=== PATIENT | female | born 1960 | race Caucasian/White ===

== ENCOUNTER 2020-11-22 07:17 | Outpatient (REF) | payer OTHER, SELFPAY ==
[2020-11-22 11:39] LABS: MANUAL DIFF FLAG NO
[2020-11-22 12:03] LABS: Basophils Percent Auto 0.5 % (0-2); Eosinophils Absolute Auto 0.1 X10*3/uL (0.0-0.4); Eosinophils Percent Auto 1.6 % (0-4); Hematocrit 40.4 % (37-47); Hemoglobin 13.1 g/dl (12.0-16.0); Imm Gran Abs Auto 0.01 X10*3/uL (0.00-0.03); Imm Gran Pct Auto 0.2 % (0.0-0.4); Lymphocytes Absolute Auto 1.8 X10*3/uL (1.2-4.9); Lymphocytes Percent Auto 41.3 % (20-40); Mean Corpuscular HGB Conc 32.4 g/dl (31.0-35.0); Mean Corpuscular Hemoglobin 29.6 pg (27.0-33.0); Mean Corpuscular Volume 91.4 fL (80-98); Mean Platelet Volume 9.8 fL (9.4-12.3); Monocytes Absolute Auto 0.3 X10*3/uL (0.1-1.2); Monocytes Percent Auto 7.4 % (2-11); Neutrophils Absolute Auto 2.1 X10*3/uL (2.0-8.3); Platelet Count 280 X10*3/uL (160-400); Red Blood Count 4.42 X10*6/uL (4.20-5.50); Red Cell Distribution Width 12.6 % (11.0-16.0); White Blood Count 4.3 X10*3/uL (4.8-10.8)
[2020-11-22 12:15] LABS: Vitamin D 25-OH Total 23.5 ng/mL (>30)
[2020-11-22 12:30] LABS: Alanine Aminotransferase 18 U/L (0-31); Anion Gap 14 (12-20); Aspartate Amino Transferase 18 U/L (5-31); Blood Urea Nitrogen 21 mg/dL (9-16); Calcium 9.7 mg/dL (8.4-10.2); Carbon Dioxide 28 mmol/L (22-29); Chloride 105 mmol/L (96-108); Cholesterol 205 mg/dL; Estimated Glomerular Filt Rate 59; Glucose Fasting 105 mg/dL (60-99); HDL Cholesterol 57 mg/dL; LDL Cholesterol Calculated 134 mg/dl; Potassium 4.5 mmol/L (3.3-5.1); Sodium 142 mmol/L (135-145); Triglycerides 74 mg/dL
== END 2020-11-22 07:18 | disposition home or self-care (01) ==
LOC: HO.HMGCLDS 07:17
PROVIDERS: PCP Internal Medicine; Visit Provider Internal Medicine
DX: Z00.00 Encounter for general adult medical examination without abnormal findings (principal); E89.41 Symptomatic postprocedural ovarian failure; K58.2 Mixed irritable bowel syndrome; I10 Essential (primary) hypertension
CPT/HCPCS: 36415; 80048; 80061; 82306; 84443; 84450; 84460; 85025

== ENCOUNTER 2022-12-04 09:03 | Outpatient (REF) | payer OTHER, SELFPAY ==
[2022-12-10 09:23] LABS: HPV mRNA E6/E7 rflx Not Detected (Not Detected)
== END 2022-12-04 09:04 | disposition home or self-care (01) ==
LOC: HO.LAB 09:03
PROVIDERS: Visit Provider Internal Medicine
DX: Z01.419 Encounter for gynecological examination (general) (routine) without abnormal findings (principal); Z11.51 Encounter for screening for human papillomavirus (HPV)
CPT/HCPCS: 87624; 88142

== ENCOUNTER 2022-12-04 09:08 | Outpatient (REF) | payer OTHER, SELFPAY ==
[2022-12-04 11:49] LABS: MANUAL DIFF FLAG NO
[2022-12-04 12:02] LABS: Basophils Percent Auto 0.4 % (0-2); Eosinophils Percent Auto 0.7 % (0-4); Hematocrit 39.1 % (37.0-47.0); Hemoglobin 12.7 g/dl (12.0-16.0); Imm Gran Abs Auto 0.01 X10*3/uL (0.00-0.03); Imm Gran Pct Auto 0.2 % (0.0-0.4); Lymphocytes Absolute Auto 1.8 X10*3/uL (1.2-4.9); Lymphocytes Percent Auto 33.6 % (20-40); Mean Corpuscular HGB Conc 32.5 g/dl (31.0-35.0); Mean Corpuscular Volume 89.3 fL (80.0-98.0); Mean Platelet Volume 9.3 fL (9.4-12.3); Monocytes Absolute Auto 0.3 X10*3/uL (0.1-1.2); Monocytes Percent Auto 6.3 % (2-11); Neutrophils Absolute Auto 3.2 x10*3/uL (2.0-8.3); Neutrophils Percent Auto 58.8 % (45-73); Platelet Count 278 X10*3/uL (160-400); Red Blood Count 4.38 X10*6/uL (4.20-5.50); Red Cell Distribution Width 13.2 % (11.0-16.0); White Blood Count 5.4 X10*3/uL (4.8-10.8)
[2022-12-04 12:22] LABS: Anion Gap 11 (12-20); Blood Urea Nitrogen 18 mg/dL (9-16); Calcium 9.6 mg/dL (8.4-10.2); Carbon Dioxide 29 mmol/L (22-29); Chloride 105 mmol/L (96-108); Cholesterol 238 mg/dL; Estimated Glomerular Filt Rate 60; Glucose Fasting 108 mg/dL (60-99); HDL Cholesterol 59 mg/dL; LDL Cholesterol Calculated 163 mg/dl; Potassium 4.2 mmol/L (3.3-5.1); Sodium 141 mmol/L (135-145); Triglycerides 82 mg/dL
[2022-12-04 12:40] LABS: Vitamin D 25-OH Total 42.1 ng/mL (>30)
== END 2022-12-04 09:09 | disposition home or self-care (01) ==
LOC: HO.HMGCLDS 09:08
PROVIDERS: PCP Internal Medicine; Visit Provider Internal Medicine
DX: Z00.01 Encounter for general adult medical examination with abnormal findings (principal); E89.41 Symptomatic postprocedural ovarian failure; K58.2 Mixed irritable bowel syndrome; R73.01 Impaired fasting glucose; Z78.0 Asymptomatic menopausal state; Z91.09 Other allergy status, other than to drugs and biological substances
CPT/HCPCS: 36415; 80048; 80061; 82306; 85025

== ENCOUNTER 2023-12-15 08:41 | Outpatient (AMB) | payer OTHER, SELFPAY ==
--- NOTE | 2023-12-15 08:48 | A.OFFPC_ITS ---
Vital Signs 12/15/23 08:51 Height 5 ft 6.5 in Weight 214 lb BMI 34.0 BP 124/70 Blood Pressure Location Lt brachial Position Sitting Pulse 73 Pulse Source Pulse Oximeter Pulse Oximetry (%) 96 Oxygen Delivery Method Room Air Intake Visit Reasons: PE Intake Note: Pt is here today for her PE: Last mammogram 02/22/23, papsmear 12/08/22: colonoscopy 2015 Dr. River Allergies omeprazole [From Prilosec] Allergy (Mild, Verified 12/15/23 08:50) Swelling codeine Adverse Reaction (Verified 12/15/23 09:09) unknown Medication List - Last Reconciled 12/15/23 by Taryn Manning MD No Known Home Meds Tobacco use date assessed: 12/15/23 Dental Screening Dental Screen Date: 12/15/23 Did you have a dental visit in the last 12 months?: Yes Did you have a dental problem in the last 6 months where you did not have access to dental care?: No Was dental information given to patient?: Patient has dentist [facility] Medical History (Updated 12/15/23 @ 09:19 by Taryn Manning MD) Hyperlipidemia Family history of thyroid disorder Menopause Impaired fasting glucose Hot flashes due to surgical menopause Uterine fibroid Environmental allergies Irritable bowel syndrome with mixed bowel habits Surgical History Hx of wisdom tooth extraction Hx of colonoscopy History of partial hysterectomy Family History Father Hypertension Skin cancer Alzheimer's dementia, late onset Mother Diabetes mellitus Thyroid disorder Sister Skin cancer Maternal Aunt Breast cancer, Onset Age: 61 Social History Housing: House Alcohol intake: current Alcohol intake frequency: holidays/special occasions only Patient Tobacco Use Status: Never used Tobacco e-Cigarette/Vaping Use: Never Used service: No Current occupational status: retired Cognitive needs: No Hearing needs: No Vision needs: Yes Questionnaire PHQ-9 Over the last 2 weeks, how often have you been bothered by any of the following problems? 1. Little interest or pleasure in doing things: not at all 2. Feeling down, depressed, or hopeless: not at all 3. Trouble falling or staying asleep, or sleeping too much: not at all 4. Feeling tired or having little energy: not at all 5. Poor appetite or overeating: not at all 6. Feeling bad about yourself - or that you are a failure or have let yourself or your family down: not at all 7. Trouble concentrating on things, such as reading the newspaper or watching television: not at all 8. Moving or speaking so slowly that other people could have noticed. Or the opposite - being so fidgety or restless that you have been moving around a lot more than usual: not at all 9. Thoughts that you would be better off or of hurting yourself in some way: not at all Total score: 0 Depression Screening Interpretation: Negative Depression Screening Done: Yes 38184 - PHQ-9 Billing: Yes Source: Developed by Drs. Eben Marte, Michelle Wright, Cale Solorzano and colleagues, with an educational abimbola from [employer]. Thrive Questionnaire Date Thrive assessed: 12/15/23 I am a: Patient What is your living situation today?: I have a steady place to live Within the past 12 months, did the food you bought not last and you didn't have the money to get more?: Never true Within the past 12 months, did you worry whether your food would run out before you got money to buy more?: Never true Do you have trouble paying for medicines?: No Do you have trouble getting transportation to medical appointments?: No Do you have trouble paying your heating and electricity bill?: No Do you have trouble taking care of your child, family member or friend?: No Do you have trouble with day-to-day activities such as bathing, preparing meals, shopping, managing finances, etc.?: No Are you currently unemployed and looking for a job?: No Are you interested in more education?: No THRIVE Score: 0 AUDIT C Alcohol Use Questionnaire (AUDIT-C) 1. How often do you have a drink containing alcohol?: Monthly or less 2. How many drinks containing alcohol do you have on a typical day when you are drinking?: 1 or 2 3. How often do you have six or more drinks on one occasion?: Never Total Score: 1 INOCENTE-7 AMB Questionnaire INOCENTE-7 Date INOCENTE - 7 assessed: 12/15/23 Feeling nervous, anxious, or on edge: 0 = Not at all Not being able to stop or control worryin = Not at all Worrying too much about different things: 0 = Not at all Trouble relaxin = Not at all Being so restless that it is hard to sit still: 0 = Not at all Becoming easily annoyed or irritable: 0 = Not at all Feeling afraid as if something awful might happen: 0 = Not at all Total INOCENTE-7 score (0-4 normal; 5-9 mild; 10-14 moderate; 15-21 severe): 0 Source: Developed by Drs. Eben Marte, Michelle Wright, Cale Solorzano and colleagues, with an educational abimbola from [employer]. Review of Systems Eyes Details: DR Mckeon Physical exam (Primary Care) Vital Signs: Last Vital Signs Pulse 73 12/15/23 08:51 BP 124/70 12/15/23 08:51 Pulse Ox 96 12/15/23 08:51 Oxygen Delivery Method Room Air 12/15/23 08:51 BMI result Body Mass Index 34.0 Tobacco/Smoking Status: Tobacco use Status Tobacco use date assessed 12/15/23 12/15/23 08:55 Patient Tobacco Use Status Never used Tobacco 12/15/23 08:55 e-Cigarette/Vaping Use Never Used 12/15/23 08:55 PHQ-9: PHQ-9 Score PHQ-9: Total score 0 12/15/23 08:55 Depression Screening Interpretation: Negative Thrive Assessment: Date of Thrive Assessment Date Thrive assessed 12/15/23 12/15/23 08:55 Assessment and Plan Assessment & Plan (1) Impaired fasting glucose: Code(s): R73.01 - Impaired fasting glucose (2) Family history of thyroid disorder: Code(s): Z83.49 - Family history of other endocrine, nutritional and metabolic diseases (3) Hyperlipidemia: Code(s): E78.5 - Hyperlipidemia, unspecified Orders: Orders Basic Metabolic Panel Fasting Today E78.5 - Hyperlipidemia, unspecified, R73.01 - Impaired fasting glucose, Z78.0 - Asymptomatic menopausal state, Z83.49 - Family history of other endocrine, nutritional and metabolic diseases Hemoglobin A1c Today E78.5 - Hyperlipidemia, unspecified, R73.01 - Impaired fasting glucose, Z78.0 - Asymptomatic menopausal state, Z83.49 - Family history of other endocrine, nutritional and metabolic diseases Lipid Panel Today E78.5 - Hyperlipidemia, unspecified, R73.01 - Impaired fasting glucose, Z78.0 - Asymptomatic menopausal state, Z83.49 - Family history of other endocrine, nutritional and metabolic diseases Alanine Aminotransferase Today E78.5 - Hyperlipidemia, unspecified, R73.01 - Impaired fasting glucose, Z78.0 - Asymptomatic menopausal state, Z83.49 - Family history of other endocrine, nutritional and metabolic diseases Aspartate Amino Transferase Today E78.5 - Hyperlipidemia, unspecified, R73.01 - Impaired fasting glucose, Z78.0 - Asymptomatic menopausal state, Z83.49 - Family history of other endocrine, nutritional and metabolic diseases TSH reflex Free T4 Today E78.5 - Hyperlipidemia, unspecified, R73.01 - Impaired fasting glucose, Z78.0 - Asymptomatic menopausal state, Z83.49 - Family history of other endocrine, nutritional and metabolic diseases Coding Level of Care Code Est Pt Prev Care 40-64y(41936) Diagnoses Impaired fasting glucose R73.01 Family history of thyroid disorder Z83.49 Hyperlipidemia E78.5
--- NOTE | 2023-12-15 08:48 | MHC.PC.OV ---
Vital Signs 12/15/23 08:51 Height 5 ft 6.5 in Weight 214 lb BMI 34.0 BP 124/70 Blood Pressure Location Lt brachial Position Sitting Pulse 73 Pulse Source Pulse Oximeter Pulse Oximetry (%) 96 Oxygen Delivery Method Room Air Intake Visit Reasons: PE Intake Note: Pt is here today for her PE: Last mammogram 02/22/23, papsmear 12/08/22: colonoscopy 2015 Dr. River Allergies omeprazole [From Prilosec] Allergy (Mild, Verified 10/04/24 18:03) Swelling codeine Adverse Reaction (Verified 10/04/24 18:03) unknown Medication List - Last Reconciled 12/15/23 by Taryn Manning MD No Known Home Meds Tobacco use date assessed: 12/15/23 Dental Screening Dental Screen Date: 12/15/23 Did you have a dental visit in the last 12 months?: Yes Did you have a dental problem in the last 6 months where you did not have access to dental care?: No Was dental information given to patient?: Patient has dentist HPI PE HPI Details 64-year-old lady with history of hyperlipidemia, IBS, impaired fasting glucose, migraine headaches, takes Tylenol or sumatriptan as needed, here today for physical exam. She has been feeling well with no complaints at present time [facility] History Hyperlipidemia Family history of thyroid disorder Menopause Impaired fasting glucose Hot flashes due to surgical menopause Uterine fibroid Environmental allergies Irritable bowel syndrome with mixed bowel habits Surgical History Hx of wisdom tooth extraction Hx of colonoscopy History of partial hysterectomy Family History Father Hypertension Skin cancer Alzheimer's dementia, late onset Mother Diabetes mellitus Thyroid disorder Sister Skin cancer Maternal Aunt Breast cancer, Onset Age: 61 Social History Housing: House Alcohol intake: current Alcohol intake frequency: holidays/special occasions only Patient Tobacco Use Status: Never used Tobacco e-Cigarette/Vaping Use: Never Used service: No Current occupational status: retired Cognitive needs: No Hearing needs: No Vision needs: Yes Female Reproductive History Menstrual Date of last pap smear: 12/04/22 Questionnaire PHQ-9 Over the last 2 weeks, how often have you been bothered by any of the following problems? 1. Little interest or pleasure in doing things: not at all 2. Feeling down, depressed, or hopeless: not at all 3. Trouble falling or staying asleep, or sleeping too much: not at all 4. Feeling tired or having little energy: not at all 5. Poor appetite or overeating: not at all 6. Feeling bad about yourself - or that you are a failure or have let yourself or your family down: not at all 7. Trouble concentrating on things, such as reading the newspaper or watching television: not at all 8. Moving or speaking so slowly that other people could have noticed. Or the opposite - being so fidgety or restless that you have been moving around a lot more than usual: not at all 9. Thoughts that you would be better off or of hurting yourself in some way: not at all Total score: 0 Depression Screening Interpretation: Negative Depression Screening Done: Yes 84875 - PHQ-9 Billing: Yes Source: Developed by Drs. Eben Marte, Michelle Wright, Cale Solorzano and colleagues, with an educational abimbola from [employer]. Thrive Questionnaire Date Thrive assessed: 12/15/23 I am a: Patient What is your living situation today?: I have a steady place to live Within the past 12 months, did the food you bought not last and you didn't have the money to get more?: Never true Within the past 12 months, did you worry whether your food would run out before you got money to buy more?: Never true Do you have trouble paying for medicines?: No Do you have trouble getting transportation to medical appointments?: No Do you have trouble paying your heating and electricity bill?: No Do you have trouble taking care of your child, family member or friend?: No Do you have trouble with day-to-day activities such as bathing, preparing meals, shopping, managing finances, etc.?: No Are you currently unemployed and looking for a job?: No Are you interested in more education?: No Please select the resources that you would like help with: None THRIVE Score: 0 AUDIT C Alcohol Use Questionnaire (AUDIT-C) 1. How often do you have a drink containing alcohol?: Monthly or less 2. How many drinks containing alcohol do you have on a typical day when you are drinking?: 1 or 2 3. How often do you have six or more drinks on one occasion?: Never Total Score: 1 INOCENTE-7 AMB Questionnaire INOCENTE-7 Date INOCENTE - 7 assessed: 12/15/23 Feeling nervous, anxious, or on edge: 0 = Not at all Not being able to stop or control worryin = Not at all Worrying too much about different things: 0 = Not at all Trouble relaxin = Not at all Being so restless that it is hard to sit still: 0 = Not at all Becoming easily annoyed or irritable: 0 = Not at all Feeling afraid as if something awful might happen: 0 = Not at all Total INOCENTE-7 score (0-4 normal; 5-9 mild; 10-14 moderate; 15-21 severe): 0 Source: Developed by Drs. Eben Marte, Michelle Wright, Cale Solorzano and colleagues, with an educational abimbola from [employer]. INOCENTE-7 Assessment Billing INOCENTE-7 Assessment Tool: INOCENTE-7 Assessment 78802 Review of Systems Const Denies body aches, Denies fatigue, Denies headache(s) and Denies weakness Eyes Details: DR Mckeon Denies change in vision ENT Details: sees Dr Vandana Gutierrez at [facility] Denies dizziness, Denies headache(s), Reports nasal congestion, Reports post nasal drip and Denies sinus pressure Card Denies chest pain, Denies lightheadedness, Denies palpitations and Denies dyspnea Resp Denies chest congestion, Denies cough, Denies dyspnea and Denies wheezing GI Denies abdominal pain, Denies change in bowel habits and Denies heartburn Denies urinary frequency, Denies dysuria, Denies prolapse symptoms, Denies urinary incontinence and Denies urinary urgency Musc Reports no additional complaints Skin/Breast Denies lesions and Denies rash Neuro Denies dizziness, Denies headache(s) and Denies weakness Psych Reports no additional complaints Endo Denies fatigue, Denies polydipsia, Denies polyuria and Denies palpitations Rubén/Lymph Denies easy bruising Aller/Immun Reports seasonal rhinorrhea and Denies wheezing Physical exam (Primary Care) Vital Signs: Last Vital Signs Pulse 73 12/15/23 08:51 BP 124/70 12/15/23 08:51 Pulse Ox 96 12/15/23 08:51 Oxygen Delivery Method Room Air 12/15/23 08:51 BMI result Body Mass Index 34.0 BMI Assessment/Plan discussion: High BMI High, discussed plan: weight reduction, dietary and physical activity Tobacco/Smoking Status: Tobacco use Status Tobacco use date assessed 12/15/23 12/15/23 08:55 Patient Tobacco Use Status Never used Tobacco 12/15/23 08:55 e-Cigarette/Vaping Use Never Used 12/15/23 08:55 PHQ-9: PHQ-9 Score PHQ-9: Total score 0 10/04/24 18:03 Depression Screening Interpretation: Negative Thrive Assessment: Date of Thrive Assessment Date Thrive assessed 12/15/23 12/15/23 08:55 Advance Care Planning discussion: Completed/Scanned Date of discussion: 12/15/23 Who was present: Patient Forms completed: Health Care Proxy Time spent: 16-45 minutes Actual minutes spent: 4 Const Other: Alert oriented x3, no acute distress noted ambulatory with normal gait Orientation/consciousness: patient oriented x3 HENMT Ears: TM's normal bilaterally and EAC's normal General nose exam: Normal external nose present Face and sinus: Yes face symmetric Mouth: oropharynx normal and moist mucous membranes Eyes General: appearance normal, both eyes and all related structures Conjunctivae: conjunctivae normal Pupils: Equal, round and reactive pupils present EOM: EOMs intact bilaterally Neck Neck: Yes normal visual inspection, Yes full ROM and Yes supple Chest Chest palpation & inspection: normal inspection of the chest Breast/axilla palpation: normal palpation of the breasts and normal palpation of the axillae Resp Effort & Inspection: normal respiratory effort and able to speak in complete sentences Auscultation: clear to auscultation bilaterally Cardio Other: S1 and S2 present regular rate and rhythm, no murmur GI Palpation (GI): Soft to palpation, nontender, no guarding and no masses Auscultation: normal bowel sounds General: Yes no CVA tenderness Back/Spine/Pelvis Back: no CVA tenderness and No back tenderness Skin General skin exam: no rashes or lesions noted Neuro General: patient oriented x3, gait normal, tone normal, moves all extremities, Normal light touch and pain sensation, no focal motor deficits and CN's II-XI intact bilaterally Cranial nerves: Yes Equal, round and reactive pupils present Extrem General: Yes full ROM, Yes no joint enlargement, Yes no clubbing, cyanosis or edema, Yes no pedal edema, Yes no calf tenderness and Yes normal gait Psych Appearance: grossly normal and well kempt Mental Status: mental status grossly normal Speech and movement: Normal speech and movement present Affect: normal affect Coding Level of Care Code Est Pt Prev Care 40-64y(86802) Diagnoses Annual visit for general adult medical examination with abnormal findings Z00.01 Impaired fasting glucose R73.01 Family history of thyroid disorder Z83.49 Hyperlipidemia E78.5 Chronic migraine without aura G43.709 Environmental allergies Z91.09 Advanced directives, counseling/discussion Z71.89 Additional Codes INOCENTE-7 Assessment Billing - INOCENTE-7 Assessment Tool: INOCENTE-7 Assessment 54680 ([id number]) Vital Signs *Quality* - Advance Care Planning discussion: Completed/Scanned ([id number]) Vital Signs *Quality* - Time spent: 16-45 minutes ([id number])
[2023-12-15 08:51] VITALS: BP 124/70; PULSE 73; O2SAT 96; BMI 34.0
== END 2023-12-15 11:29 | disposition home or self-care (01) ==
PROVIDERS: PCP Internal Medicine; Visit Provider Internal Medicine
DX: Z00.01 Encounter for general adult medical examination with abnormal findings (principal); R73.01 Impaired fasting glucose; Z83.49 Family history of other endocrine, nutritional and metabolic diseases; E78.5 Hyperlipidemia, unspecified; G43.709 Chronic migraine without aura, not intractable, without status migrainosus; Z91.09 Other allergy status, other than to drugs and biological substances; Z71.89 Other specified counseling; Z00.00 Encounter for general adult medical examination without abnormal findings
CPT/HCPCS: 99499

== ENCOUNTER 2023-12-15 09:39 | Outpatient (REF) | payer OTHER, SELFPAY ==
[2023-12-15 11:14] LABS: Estimated Average Glucose 126 mg/dL
[2023-12-15 11:41] LABS: Alanine Aminotransferase 29 U/L (0-31); Anion Gap 12 (12-20); Aspartate Amino Transferase 18 U/L (5-31); Blood Urea Nitrogen 21 mg/dL (9-16); Carbon Dioxide 27 mmol/L (22-29); Chloride 106 mmol/L (96-108); Cholesterol 239 mg/dL (<200); Estimated Glomerular Filt Rate 58; Glucose Fasting 100 mg/dL (60-99); HDL Cholesterol 61 mg/dL (>40); LDL Cholesterol Calculated 159 mg/dL (<100); Potassium 3.7 mmol/L (3.3-5.1); Sodium 141 mmol/L (135-145); Triglycerides 96 mg/dL (<150)
[2023-12-15 11:57] LABS: TSH reflex Free T4 1.96 uIU/mL (0.32-4.0)
== END 2023-12-15 09:40 | disposition home or self-care (01) ==
LOC: HO.HMGCLDS 09:39
PROVIDERS: PCP Internal Medicine; Visit Provider Internal Medicine
DX: R73.01 Impaired fasting glucose (principal); E78.5 Hyperlipidemia, unspecified; Z83.49 Family history of other endocrine, nutritional and metabolic diseases; Z78.0 Asymptomatic menopausal state
CPT/HCPCS: 36415; 80048; 80061; 83036; 84443; 84450; 84460

== ENCOUNTER 2024-02-25 09:56 | Outpatient (AMB) | payer OTHER, SELFPAY ==
[2024-02-25 09:57] VITALS: BP 164/92; PULSE 76; O2SAT 97; BMI 35.2
--- NOTE | 2024-02-25 09:57 | MHC.OFFVIS ---
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 Allergies omeprazole [From Prilosec] Allergy (Mild, Verified 02/25/24 10:01) Swelling codeine Adverse Reaction (Verified 02/25/24 10:01) unknown Medication List - Last Reconciled 02/25/24 by GEORGE Martines magnesium oxide 400 mg PO BEDTIME 30 days riboflavin (vitamin B2) 400 mg PO DAILY 30 days sumatriptan succinate 50 - 100 mg orally at onset of headache, may repeat in 2 hrs PRN; max 2 tabs per day or 4 tabs/week (may take with Tylenol) 30 days HPI Comments Details: 64-yr-old female presents for new pt evaluation of possible migraine. Pt reports she has always had allergies, sinus, and postnasal drip issues. She started seeing an security expert a couple of years ago, who started her on allergy shots however this did not help her postnasal drip s/s. She was then referred to ENT, who did sinus CT- which was clear and thus pt was referred here. She had taken sudafed for at least 20 yrs, and started taking it almost daily x's 15 yrs. If her head was really hurting she would take Tylenol to boost the pain relief . But stopped earlier this year per advise of ENT and security expert. She states the congestion she was trying to treat was never in her nose, but more so in the frontal region. PMH and ROS are notable for:? Vision: Some blurry vision at times- thinks this is d/t her progressive glasses slipping down- sees her eye doctor regularly. Neuro: motion sickness if say in a car and tries to focus on something like reading or spinning rides, off-balance upon standing up quickly. Musculoskeletal disorders or injury: neck or mid-back pain- mostly when standing for awhile, possibly r/t her large breast size. History of syncope- Passed out during her 1st - was quite sick during that . And once became whoozy and had to sit down at [employer]- it was hot. never occurred again. GI d/o: h/o GERD- was r/t a certain medication use. IBS. Constipation: sometimes. Family history of migraine or other headache disorder: her dtr's. Pertinent denials include: History of concussion/head injury, Mood d/o, Respiratory d/o, CV disease, Clotting or hematology d/o, Endocrine d/o, metabolic d/o, History of seizure or drop attacks, Leg Cramps, Lifestyle considerations: Sleep routine: Usual bedtime: 11pm-1am and wake-up time: 5am Sleep difficulties: Usually sleeps ok, her may wake her up w/ his movements. Endorses: Snoring if on her back, possibly bruxism. Caffeine use: 2 cups per day in the am. Substance use: Alcohol- social when out to dinner Exercise:? Active at home. Walks on nice days. No structured exercise. 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 Headache questionnaire:? Typical headache characteristics: Prodrome symptoms: Unsure Aura: Unsure Pain intensity: moderate Location, quality, characteristics: Pressure/throbbing pain usually in bilateral temples and retrooribital regions. Occassional pain in top or back of head. Associated symptoms: at times, allodynia, nausea, rubbing her temples causes drainage from the psoterior orophraynx, prone to itchy/watery eyes, inner ears can be itching, Also: Right ear pain- right retro-auricular palpable pain that would radiate down right jaw. Postdrome: Unsure Triggers: If she lays down flat- this will cause nausea. Bending over and coming back up triggers obset of nausea, head pressure. Also stress, weather changes, altitude changes. Time of day: No specific time of day Duration and Frequency: Hours to all day. How does headache impact your life? Usually pushes through it. Current acute medication use/interventions: Nothing Current preventative medication use: None. Using Georgiana prior to her allergy injections- but this tends to cause a mid-frontal headache. Non-pharmacological interventions: [facility] Medical History (Updated 02/27/24 @ 20:19 by GEORGE Martines) Hyperlipidemia Family history of thyroid disorder Menopause Impaired fasting glucose Hot flashes due to surgical menopause Uterine fibroid Environmental allergies Irritable bowel syndrome with mixed bowel habits Surgical History Hx of wisdom tooth extraction Hx of colonoscopy History of partial hysterectomy Family History Father Hypertension Skin cancer Alzheimer's dementia, late onset Mother Diabetes mellitus Thyroid disorder Sister Skin cancer Maternal Aunt Breast cancer, Onset Age: 61 Social History Housing: House Alcohol intake: current Alcohol intake frequency: holidays/special occasions only Patient Tobacco Use Status: Never used Tobacco e-Cigarette/Vaping Use: Never Used service: No Current occupational status: retired Cognitive needs: No Hearing needs: No Vision needs: Yes Physical Exam Vital Signs: Last Vital Signs Pulse 76 02/25/24 09:57 BP 164/92 H 02/25/24 09:57 Pulse Ox 97 02/25/24 09:57 Oxygen Delivery Method Room Air 02/25/24 09:57 BMI result Body Mass Index 35.2 Const Orientation/consciousness: patient oriented x3 Resp Effort & Inspection: normal respiratory effort and able to speak in complete sentences Neuro Other: Bilateral posterior cervical tightness. Cervical ROM: mildly limited Left Spurling: normal Right Spurling: normal. Unable to prefom Tandem gait General: patient oriented x3 Cranial nerves: Yes CN's II-XII intact bilaterally Cognition (Neuro): normal cognition Gait exam (Neuro): Normal gait present Motor exam (neuro): 5/5 motor strength present throughout Deep tendon reflexes (DTR's): Right triceps reflex intensity grade: 2+, Left triceps reflex intensity grade: 2+, Rt Biceps (C5, C6): 2+, Left biceps reflex intensity grade: 2+, Right brachioradialis reflex intensity grade: 2+, Left brachioradialis reflex intensity grade: 2+, Right patellar reflex intensity grade: 2+ and Left patellar reflex intensity grade: 2+ Coordination: [id number] test normal and Romberg test negative Pupils: Normal pupillary reactivity/response: bilateral Psych Appearance: grossly normal Mental Status: mental status grossly normal Speech and movement: Normal speech and movement present Affect: normal affect Attitude: cooperative Thought process: Normal thought process present Assessment & Plan Assessment & Plan (1) Chronic migraine without aura: Code(s): G43.709 - Chronic migraine without aura, not intractable, without status migrainosus Category: Medical (2) Motion sickness: Code(s): T75.3XXA - Motion sickness, initial encounter Category: Medical (3) Positional headache: Code(s): R51.0 - Headache with orthostatic component, not elsewhere classified Category: Medical (4) Vertigo: Code(s): R42 - Dizziness and giddiness Category: Medical Plan Discussed that I suspect pt's sinus s/s are likely a headache disorder with features c/w chronic migraine w/o aura. However, pt also has headaches/pressure/nausea triggered by laying flat or bending over/standing back up. Thus, pt advised to undergo: Brain MRI w/wo to assess for intracranial etiologies, such as intracranial HTN. Note- her dtr has IIH. PT eval & tx- for headache and cervical neck tightness. For overall headache management: Optimize good self-care, including but not limited to maintaining a healthy diet, adequate fluid intake, adequate sleep, and engaging in regular physical activity. Track headaches, especially after any treatment regimen changes. For acute headache treatment: Discussed importance of taking acute medications at the first sign of headache, however stressed importance of avoiding acute medication overuse. Avoid Sudafed. Trial Sumatriptan 100mg tab, 1/2 - 1 tab (50-100mg) at onset of headache, may repeat in 2 hours. Max of 2 tabs (200mg) per 24 hours. May adjunct with OTC Tylenol 650mg q 4 hours, Ibuprofen 600mg q 6 hours, or Naproxen 440mg q 12 hrs prn. Potential adverse effects of triptans, including but not limited to nausea, fatigue, chest tightness/tingling (usually passes within a few minutes), medication overuse headaches. Previous acute migraine medication trials: no other prescription tx's. Acute migraine medication contraindications: None at this time For headache prevention medication: Preventative medications should be taken routinely as prescribed for best effect, it may take several weeks for full effect to take effect. Start Riboflavin 400mg qam Start Magnesium 400mg qhs Previous migraine prevention medication trials: None Migraine prevention medication contraindications: None at this time Follow-up upon review of above and in clinic in 3-6 months or sooner prn. Orders: Orders MR head/brain wo/w con 08/09/24 R11.0 - Nausea, R42 - Dizziness and giddiness, R51.0 - Headache with orthostatic component, not elsewhere classified PT Evaluation and Treatment 02/25/24 G43.709 - Chronic migraine without aura, not intractable, without status migrainosus, T75.3XXA - Motion sickness, initial encounter Medications: New sumatriptan succinate (0.5 - 1 x 100 mg) 50 - 100 mg orally at onset of headache, may repeat in 2 hrs PRN; max 2 tabs per day or 4 tabs/week (may take with Tylenol) 30 days 12 tabs 6RF migraine headache magnesium oxide may hold for loose stools 400 mg PO BEDTIME 30 days 30 tabs 6RF riboflavin (vitamin B2) 400 mg PO DAILY 30 days 30 tabs 6RF alprazolam 0.25 mg orally 1 tab 30 minutes prior to MRI, may repeat x's 1; 1 day 2 tabs 0RF Coding Level of Care Code New Pt Level 4 (19743) Diagnoses Chronic migraine without aura G43.709 Motion sickness T75.3XXA Positional headache R51.0 Vertigo R42
== END 2024-02-25 11:44 | disposition home or self-care (01) ==
PROVIDERS: PCP Internal Medicine; Visit Provider Nurse Practitioner Family
DX: G43.709 Chronic migraine without aura, not intractable, without status migrainosus (principal); T75.3XXA Motion sickness, initial encounter; R51.0 Headache with orthostatic component, not elsewhere classified; R42 Dizziness and giddiness
CPT/HCPCS: 99204

== ENCOUNTER → 2024-02-25 09:56 | Outpatient (BNVA) | payer OTHER, SELFPAY | PROVIDERS: PCP Internal Medicine; Visit Provider Nurse Practitioner Family | DX: G43.709 Chronic migraine without aura, not intractable, without status migrainosus (principal); R51.0 Headache with orthostatic component, not elsewhere classified; R42 Dizziness and giddiness; R11.0 Nausea; T75.3XXA Motion sickness, initial encounter; X58.XXXA Exposure to other specified factors, initial encounter; Y93.9 Activity, unspecified; Y92.9 Unspecified place or not applicable; Y99.9 Unspecified external cause status | CPT/HCPCS: 99202 ==

== ENCOUNTER 2024-03-02 12:04 | Outpatient (AMB) | payer OTHER, SELFPAY ==
--- NOTE | 2024-03-02 12:08 | AM.OFFWIN_ITS ---
Intake Vital Signs 03/02/24 12:13 Height 5 ft 6 in Weight 218 lb BMI 35.2 BP 130/82 Blood Pressure Location Rt brachial Position Sitting Pulse 78 Pulse Source Pulse Oximeter Pulse Oximetry (%) 97 Oxygen Delivery Method Room Air Intake Visit Reasons: EP LT ear block, diff hearing, ringing Intake Note: Patient here for left ear difficulty hearing that started yesterday. Patient Tobacco Use Status: Never used Tobacco Allergies omeprazole [From Prilosec] Allergy (Mild, Verified 03/02/24 12:13) Swelling codeine Adverse Reaction (Verified 03/02/24 12:13) unknown Do you need a note to return to daycare/school/sports/work: No HPI HPI Comments History of Present Illness Details 64 y/o female patient who presents to [facility] with c/o hearing changes left ear since yesterday. Pt c/o hearing muffled sounds in the left ear. C/o feeling pressure and pain left ear. Denies ringing or discharge. [facility] Medical History (Updated 02/27/24 @ 20:19 by GEORGE Martines) Hyperlipidemia Family history of thyroid disorder Menopause Impaired fasting glucose Hot flashes due to surgical menopause Uterine fibroid Environmental allergies Irritable bowel syndrome with mixed bowel habits Surgical History Hx of wisdom tooth extraction Hx of colonoscopy History of partial hysterectomy Family History Father Hypertension Skin cancer Alzheimer's dementia, late onset Mother Diabetes mellitus Thyroid disorder Sister Skin cancer Maternal Aunt Breast cancer, Onset Age: 61 Social History Housing: House Alcohol intake: current Alcohol intake frequency: holidays/special occasions only Patient Tobacco Use Status: Never used Tobacco e-Cigarette/Vaping Use: Never Used service: No Current occupational status: retired Cognitive needs: No Hearing needs: No Vision needs: Yes Review of Systems Const All systems reviewed & are unremarkable except as noted in HPI and below Physical Exam Vital Signs: Last Vital Signs Pulse 78 03/02/24 12:13 BP 130/82 03/02/24 12:13 Pulse Ox 97 03/02/24 12:13 Oxygen Delivery Method Room Air 03/02/24 12:13 BMI result Body Mass Index 35.2 Const General: cooperative and no acute distress Nutritional Appearance: obese Orientation/consciousness: patient oriented x3 HEENT Head: Yes normocephalic Ears: external ears normal and TM abnormal bulging bilateral, erythematous bilateral and with fluid behind the TM bilateral General nose exam: Normal external nose present Face and sinus: Yes normal facial exam Throat: Yes posterior oropharynx normal Resp Effort & Inspection: normal respiratory effort and able to speak in complete sentences Cardio Heart sounds: S1 normal heart sound present and S2 normal heart sound present Neuro General: patient oriented x3 Assessment & Plan Assessment & Plan (1) Pressure-related ear pain: Code(s): T70.0XXA - Otitic barotrauma, initial encounter Qualifiers: Encounter type: initial encounter Qualified Code(s): T70.0XXA - Otitic barotrauma, initial encounter Plan: OTC Zrytec, Claritin or Georgiana (BID x 7 days). Acetaminophen for pain relief. No signs of infection right now. TM intact. Coding Level of Care Code Est Pt Level 3 (06211) Diagnoses Otitic barotrauma, initial encounter T70.0XXA Encounter type: initial encounter Time Spent (min) 15
[2024-03-02 12:13] VITALS: BP 130/82; PULSE 78; O2SAT 97; BMI 35.2
== END 2024-03-02 12:49 | disposition home or self-care (01) ==
PROVIDERS: PCP Internal Medicine; Visit Provider Nurse Practitioner Family
DX: T70.0XXA Otitic barotrauma, initial encounter (principal)
CPT/HCPCS: 99213

== ENCOUNTER 2024-09-07 08:49 | Outpatient (AMB) | payer OTHER, SELFPAY ==
--- NOTE | 2024-09-07 08:53 | MHC.OFFVIS ---
Vital Signs 09/07/24 08:55 Height 5 ft 6 in Weight 216 lb BMI 34.9 BP 130/70 Blood Pressure Location Rt brachial Position Sitting Intake Visit Reasons: 6mo. 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 Patient denies any significant medical history changes. She did PT, which has helped her headaches. She does continue to do her PT exercises. She notes, before she never really consider these to be headaches, but rather just her sinus symptoms. She still wakes up daily with post nasal drip and sinus congestion. She is having 1-2 bothersome headaches, which responds to OTC Tylenol or Ibuprofen. She states she never received sumatriptan. She tried riboflavin and magnesium, atorvastatin, states 1 of them cause loose stools. She does continue on allergy immunotherapy, which has decreased her sensitivity to her daughters cat however has not affected the postnasal drip/sinus congestion symptoms. Brain MRI showed age-related volume loss and mild signs of microangiopathic changes. Patient denies cognitive difficulties. BP is normotensive. Does have HLD- 12/15/2023 elevated total cholesterol 239 and LDL, 159 with normal triglycerides 96 and HDL 61. Patient generally cooks from scratching at home, follows typical Mediterranean type diet. She did try a migraine diet elimination trial, however she did not notice any benefit from this and is difficult to maintain. She does try to be physically active Her father of AD, dx'd at age 70- but had s/s earlier in [facility], at about age 80. Her mother had dementia- pt feels it was likely secondary to worsening macular degeneration, and the subsequent social isolation this caused. 02/25/24, initial HPI: 64-yr-old female presents for new pt evaluation of possible migraine. Pt reports she has always had allergies, sinus, and postnasal drip issues. She started seeing an sales representative cash registers a couple of years ago, who started her on allergy shots however this did not help her postnasal drip s/s. She was then referred to ENT, who did sinus CT- which was clear and thus pt was referred here. She had taken sudafed for at least 20 yrs, and started taking it almost daily x's 15 yrs. If her head was really hurting she would take Tylenol to boost the pain relief . But stopped earlier this year per advise of ENT and sales representative cash registers. She states the congestion she was trying to treat was never in her nose, but more so in the frontal region. PMH and ROS are notable for:? Vision: Some blurry vision at times- thinks this is d/t her progressive glasses slipping down- sees her eye doctor regularly. Neuro: motion sickness if say in a car and tries to focus on something like reading or spinning rides, off-balance upon standing up quickly. Musculoskeletal disorders or injury: neck or mid-back pain- mostly when standing for awhile, possibly r/t her large breast size. History of syncope- Passed out during her 1st - was quite sick during that . And once became whoozy and had to sit down at [employer]- it was hot. never occurred again. GI d/o: h/o GERD- was r/t a certain medication use. IBS. Constipation: sometimes. Family history of migraine or other headache disorder: her dtr's. Pertinent denials include: History of concussion/head injury, Mood d/o, Respiratory d/o, CV disease, Clotting or hematology d/o, Endocrine d/o, metabolic d/o, History of seizure or drop attacks, Leg Cramps, Lifestyle considerations: Sleep routine: Usual bedtime: 11pm-1am and wake-up time: 5am Sleep difficulties: Usually sleeps ok, her may wake her up w/ his movements. Endorses: Snoring if on her back, possibly bruxism. Caffeine use: 2 cups per day in the am. Substance use: Alcohol- social when out to dinner Exercise:? Active at home. Walks on nice days. No structured exercise. 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 Headache questionnaire:? Typical headache characteristics: Prodrome symptoms: Unsure Aura: Unsure Pain intensity: moderate Location, quality, characteristics: Pressure/throbbing pain usually in bilateral temples and retrooribital regions. Occassional pain in top or back of head. Associated symptoms: at times, allodynia, nausea, rubbing her temples causes drainage from the psoterior orophraynx, prone to itchy/watery eyes, inner ears can be itching, Also: Right ear pain- right retro-auricular palpable pain that would radiate down right jaw. Postdrome: Unsure Triggers: If she lays down flat- this will cause nausea. Bending over and coming back up triggers obset of nausea, head pressure. Also stress, weather changes, altitude changes. Time of day: No specific time of day Duration and Frequency: Hours to all day. How does headache impact your life? Usually pushes through it. Current acute medication use/interventions: Nothing Current preventative medication use: None. Using Georgiana prior to her allergy injections- but this tends to cause a mid-frontal headache. 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 menopause Uterine fibroid Environmental allergies Irritable bowel syndrome with mixed bowel habits Surgical History Hx of wisdom tooth extraction Hx of colonoscopy History of partial hysterectomy Family History Father Hypertension Skin cancer Alzheimer's dementia, late onset Mother Diabetes mellitus Thyroid disorder Sister Skin cancer Maternal Aunt Breast cancer, Onset Age: 61 Social History Housing: House Alcohol intake: current Alcohol intake frequency: holidays/special occasions only Patient Tobacco Use Status: Never used Tobacco e-Cigarette/Vaping Use: Never Used service: No Current occupational status: retired Cognitive needs: No Hearing needs: No Vision needs: Yes Physical Exam Vital Signs: Last Vital Signs BP 130/70 09/07/24 08:55 BMI result Body Mass Index 34.9 Const Orientation/consciousness: patient oriented x3 Resp Effort & Inspection: normal respiratory effort and able to speak in complete sentences Neuro General: patient oriented x3 Cranial nerves: Yes CN's II-XII intact bilaterally Cognition (Neuro): normal cognition Gait exam (Neuro): Normal gait present Motor exam (neuro): 5/5 motor strength present throughout Coordination: [id number] test normal and Romberg test negative Psych Appearance: grossly normal Mental Status: mental status grossly normal Speech and movement: Normal speech and movement present Affect: normal affect Attitude: cooperative Thought process: Normal thought process present Results Reviewed Results Reviewed: [facility] MRN:?[id number] Exam Date:?03/07/2024 PROCEDURE: MR BRAIN w + wo CONTRAST INDICATION: Headache with orthostatic component, not elsewhere classified. Bilateral temporal migraines and behind the eyes for twenty years. Nausea. Dizziness and giddiness. TECHNIQUE: Multi-planar, multi-sequence MR imaging of the brain was performed without and with intravenous contrast. 20 mL of Dotarem was administered intravenously. No contrast waste documented. COMPARISON: None Available. FINDINGS: Diffusion-weighted imaging demonstrates no area of restricted diffusion to suggest acute infarction. There is no intracranial hemorrhage, midline shift, mass effect, or extra-axial fluid collection. There are no areas of abnormal enhancement. There are mild scattered patchy areas of T2 prolongation within the subcortical and deep periventricular white matter, suggesting changes of chronic microvascular ischemia. Brain parenchyma otherwise demonstrates normal morphology and signal characteristics. Midline structures are within normal limits. Major intracranial vessels demonstrate preserved flow voids. Brain volume and ventricular system are within normal limits for age. Visualized paranasal sinuses are unremarkable. Orbits, globes, and mastoid air cells are unremarkable. IMPRESSION: No acute intracranial findings. Age-related global parenchymal volume loss. Assessment & Plan Assessment & Plan (1) Chronic migraine without aura: Code(s): G43.709 - Chronic migraine without aura, not intractable, without status migrainosus Category: Medical (2) Motion sickness: Code(s): T75.3XXA - Motion sickness, initial encounter Category: Medical (3) Positional headache: Code(s): R51.0 - Headache with orthostatic component, not elsewhere classified Category: Medical (4) Vertigo: Code(s): R42 - Dizziness and giddiness Category: Medical Plan Reviewed Brain MRI w/wo report and imaging results with patient- mi nonspecific white matter changes, likely signs of chronic microangiopathy versus migraine vasculopathy, mild age-related generalized volume loss. Discussed importance of optimizing CV and metabolic risk factors- such as maintaining optimal BP, cholesterol, and blood sugar control. If HDL persists, patient may benefit from starting statin therapy. Encouraged to engage in regular physical, cognitive, social stimulating activities. As patient's father has history of AD- likely starting in his 60s, patient advised to notify us if she notices any cognitive changes. For overall headache management: Optimize good self-care, including but not limited to maintaining a healthy diet, adequate fluid intake, adequate sleep, and engaging in regular physical activity. Track headaches. Continue PT exercises for headache and cervical neck tightness For acute headache treatment: Again trial Sumatriptan- specifically would like to see if the sinus pressure symptoms respond to triptan use. Sumatriptan 100mg tab, 1/2 - 1 tab (50-100mg) at onset of headache, may repeat in 2 hours. Max of 2 tabs (200mg) per 24 hours. May adjunct with OTC Tylenol 650mg q 4 hours, Ibuprofen 600mg q 6 hours, or Naproxen 440mg q 12 hrs prn. Potential adverse effects of triptans, including but not limited to nausea, fatigue, chest tightness/tingling (usually passes within a few minutes), medication overuse headaches. Previous acute migraine medication trials: no other prescription tx's. Acute migraine medication contraindications: None at this time For headache prevention medication: Discontinue riboflavin 400 mg q.a.m. and Magnesium 400mg qhs- cause loose stools. Previous migraine prevention medication trials: None Migraine prevention medication contraindications: riboflavin 400 mg q.a.m. and Magnesium 400mg qhs- cause loose stools. Pt to follow-up in 6 months or sooner prn. Medications: Refilled sumatriptan succinate (0.5 - 1 x 100 mg) 50 - 100 mg orally at onset of headache, may repeat in 2 hrs PRN; max 2 tabs per day or 4 tabs/week (may take with Tylenol) 30 days 12 tabs 6RF migraine headache Coding Level of Care Code Est Pt Level 4 (05846) Diagnoses Chronic migraine without aura G43.709 Motion sickness T75.3XXA Positional headache R51.0 Vertigo R42
[2024-09-07 08:55] VITALS: BP 130/70; BMI 34.9
--- OUTSIDE RECORDS SUMMARY | 2024-09-07 09:20 | XMS_ITS | Data Portability ---
Author Organization [place] [facility], Allergy Address [address] [place] [id number] Care Team Providers Care Police Judge Name Role Phone MARY BOUCHER Primary Care Provider Assessment Encounter Date Assessment Date Assessment LastModified by Organization Details LastModified Time 04/12/2024 04/12/2024 64-year-old female presents for reevaluation of seasonal allergies. I would recommend continuing immunotherapy as it has been beneficial in relieving her allergy symptoms. As she had no benefit from Flonase would recommend a trial of Atrovent. She was instructed in proper use. If this is not beneficial could consider azelastine. She has had a CT scan which was negative for sinus disease. Continue physical therapy for migraine management as this is also been beneficial. Follow-up in 6 months. niall Not available 04/12/2024 14:03:56 Plan of Treatment Reminders Order Date Submit Date Provider Last Modified By Organization Details Last Modified Time Details Appointments Establish ed 15 2024 09:30A M OLIVER CHEEMA PA-C Not available Not available Not available Lab None recorded. Referral None recorded. Procedures None recorded. Surgeries None recorded. Imaging None recorded. Medication Orders ipratropi um bromide 21 mcg (0.03 %) nasal spray 2023 024 [facility] #[id number], [address] [facility], [place], [address], 04/12/2024 14:04:23 Patient TargetsNo targets recorded. Patient InstructionsNo instructions recorded. Reason for Referral None Reported. Problems Name Problem SNOMED Code Status Onset Date Resolution Date Notes Provider Name and Address Organization Details Recorded Time Impacted cerumen in right ear 38027370735 92042 Active 2022 Impacted cerumen, right ear; Note: Date Diagnosed : 04/20/2023 2:44 PM (H61.21) Not Available [facility] 4 02:52:17 Allergic rhinitis caused by pollen 74867247 Active 2022 Allergic rhinitis due to pollen; Note: Date Diagnosed : 04/20/2023 2:56 PM (J30.1) Not Available [facility] 4 02:52:15 Headache 76614651 Active 2022 Headache, unspecifi ed; Note: Changed from R51 to R51.9 ( 10:58 AM) , Date Diagnosed : 04/20/2023 2:56 PM (R51) Not Available [facility] 02:52:14 Migraine without aura 80790101 Active 2023 IRIS GILMORE MD [address] [place] [address], [facility] [place], [phone] , [facility] - [facility] 17:03:18 Problem Notes None recorded. Medical Equipment None Reported. Medications Name Sig Start Date Stop Date Status Note LastModified by Organization Details LastModified Time alprazolam 0.25 mg tablet active Not Available Not Available Not Available magnesium oxide 400 mg (241.3 mg magnesium) tablet active Not Available Not Available Not Available ipratropium bromide 21 mcg (0.03 %) nasal spray [address] [facility] 2 sprays twice a day by intranasal route. active Not Available Not Available No t Available mometasone 0.1 % topical cream active Not Available Not Available Not Available riboflavin (vitamin B2) 400 mg tablet active Not Available Not Available Not Available Vitals Date Recorded Body height Body mass index (BMI) Body weight Provider Name and Address Organization Details Last Updated DateTime 04/12/2024 170.18 cm 33.7 kg/m2 86820.36 g Lilliam Finley [place] [facility] 04/12/2024 13:32:08 Social History None recorded. Functional Status None recorded. Mental Status None recorded. Family History Nothing Reported. Medical History No medical history recorded. Gynecological HistoryNo gynecological history recorded. Obstetrics History GPAL:G 0 P 0 0 0 0 Past Encounters Encounter ID Performer Location Encounter Start Date Encounter Closed Date Diagnosis/Indication Diagnosis SNOMED-CT Code Diagnosis ICD10 Code Diagnosis Note [id number] IRIS GILMORE MD [facility] [address] [id number] 04/12/2024 13:07:14 04/12/2024 13:51:16 Allergic rhinitis caused by pollen 12816651 J30.1 Headache 65261365 R51.9 Migraine without aura 56 941687 G43.009 Health Concerns Section Related Observation LastModified by Organization Detai ls LastModified Time None Recorded Concern Status LastModified by Organization Details LastModified Time None Recorded Advance Directives Directive None Recorded Payers Encounter Date Sequence Insurance Name Policy Number Policy Turner Covered Member ID Turner Member ID Guarantor Name 04/12/2024 1 [facility] (O) [id number] Ninfa Land [id number] Ninfa Land Notes Date Note Type Note Provider Name and Address Organization Details Recorded Time 04/12/2024 text/html 64-year-old manju moscoso presents for reevaluation of seasonal allergies. She has been receiving immunotherapy through our office for about 2 years now. She notices significant improvement in her allergies since starting immunotherapy. Continues to have postnasal drip which is her most bothersome symptom. She has used Flonase with little benefit. She also has frequent pressure headaches which are thought to be related to migraine. She saw a neurologist who referred her for physical therapy which involves deep tissue massage. This has been helping relieve her headaches. IRIS GILMORE MD [address] [place] [address], [place], [address], [facility] - [facility] 04/12/2024 17:03:33 OBGyn Episode No OBEpisode recorded.
== END 2024-09-07 09:56 | disposition home or self-care (01) ==
PROVIDERS: PCP Internal Medicine; Visit Provider Nurse Practitioner Family
DX: G43.709 Chronic migraine without aura, not intractable, without status migrainosus (principal); T75.3XXA Motion sickness, initial encounter; R51.0 Headache with orthostatic component, not elsewhere classified; R42 Dizziness and giddiness
CPT/HCPCS: 99214

== ENCOUNTER → 2024-09-07 08:49 | Outpatient (BNVA) | payer OTHER, SELFPAY | PROVIDERS: PCP Internal Medicine; Visit Provider Nurse Practitioner Family | DX: G43.709 Chronic migraine without aura, not intractable, without status migrainosus (principal); R51.0 Headache with orthostatic component, not elsewhere classified; R42 Dizziness and giddiness; T75.3XXA Motion sickness, initial encounter | CPT/HCPCS: 99212 ==

== ENCOUNTER 2024-10-09 11:20 | Outpatient (AMB) | payer OTHER, SELFPAY ==
[2024-10-09 13:13] VITALS: BP 130/82; PULSE 73; O2SAT 98
--- NOTE | 2024-10-09 13:13 | AM.OFFWIN_ITS ---
Intake Vital Signs 10/09/24 13:13 Weight 209 lb BP 130/82 Blood Pressure Location Lt brachial Position Sitting Pulse 73 Pulse Source Pulse Oximeter Pulse Oximetry (%) 98 Oxygen Delivery Method Room Air Intake Visit Reasons: EP Rt shoulder pain, can't raise arm Intake Note: Patient here for right shoulder pain that radiate to the top of her arm which has been like this for several months with no improvement. Patient Tobacco Use Status: Never used Tobacco Allergies omeprazole [From Prilosec] Allergy (Mild, Verified 10/09/24 13:18) Swelling codeine Adverse Reaction (Verified 10/09/24 13:18) unknown Do you need a note to return to daycare/school/sports/work: No HPI HPI Comments History of Present Illness Details 64 y/o female patient who presents to [facility] walk in clinic with c/o chronic persistent Right shoulder pain for several months now. Denies injury or trauma to the shoulder. [facility] Medical History (Updated 10/09/24 @ 14:30 by Janet Bradshaw NP) Right shoulder pain Hyperlipidemia Family history of thyroid disorder Menopause Impaired fasting glucose Hot flashes due to surgical menopause Uterine fibroid Environmental allergies Irritable bowel syndrome with mixed bowel habits Surgical History Hx of wisdom tooth extraction Hx of colonoscopy History of partial hysterectomy Family History Father Hypertension Skin cancer Alzheimer's dementia, late onset Mother Diabetes mellitus Thyroid disorder Sister Skin cancer Maternal Aunt Breast cancer, Onset Age: 61 Social History Housing: House Alcohol intake: current Alcohol intake frequency: holidays/special occasions only Patient Tobacco Use Status: Never used Tobacco e-Cigarette/Vaping Use: Never Used service: No Current occupational status: retired Cognitive needs: No Hearing needs: No Vision needs: Yes Physical Exam Vital Signs: Last Vital Signs Pulse 73 10/09/24 13:13 BP 130/82 10/09/24 13:13 Pulse Ox 98 10/09/24 13:13 Oxygen Delivery Method Room Air 10/09/24 13:13 Const General: cooperative and no acute distress Nutritional Appearance: overweight Orientation/consciousness: patient oriented x3 Neuro General: patient oriented x3, gait normal and moves all extremities Extrem Right upper extremity: shoulder/upper arm Details: tenderness Location: of the proximal humerus and over the deltoid bursa and abnormal ROM Details: pain with active ROM and pain with passive ROM; no ecchymosis and no crepitus Psych Speech and movement: Normal speech and movement present Assessment & Plan Assessment & Plan (1) Right shoulder pain: Code(s): M25.511 - Pain in right shoulder Qualifiers: Chronicity: chronic Qualified Code(s): M25.511 - Pain in right shoulder; G89.29 - Other chronic pain Plan: Ordered Xray Shoulder. Ordered Lidocaine and Muscle relaxants NSAIDs Ordered PT. Orders: Orders XR shoulder RT min 2V Today M25.511 - Pain in right shoulder PT Evaluation and Treatment Today M25.511 - Pain in right shoulder Medications: New lidocaine 5% leave on most painful area for up to 12 hrs 1 patch topical DAILY 30 ea 0RF M25.511 - Pain in right shoulder cyclobenzaprine 10 mg PO BEDTIME 14 tabs 0RF M25.511 - Pain in right shoulder diclofenac sodium 1% (Voltaren Arthritis Pain) APPLY TO THE AFFECTED JOINT TWICE A DAY. 2 grams topical BID 100 grams 0RF M25.511 - Pain in right shoulder Coding Level of Care Code Est Pt Level 4 (78969) Diagnoses Chronic right shoulder pain M25.511; G89.29 Chronicity: chronic Time Spent (min) 20
== END 2024-10-09 13:52 | disposition home or self-care (01) ==
PROVIDERS: PCP Internal Medicine; Visit Provider Nurse Practitioner Family
DX: M25.511 Pain in right shoulder (principal); G89.29 Other chronic pain

== ENCOUNTER 2024-10-09 11:20 | Outpatient (REF) | payer OTHER, SELFPAY ==
--- NOTE | ~2024-10-09 | XR_ITS ---
EXAMINATION: XR SHOULDER 2 OR MORE VIEWS RIGHT HISTORY: M25.511 - Pain in right shoulder COMPARISON: There are no prior studies available for comparison. FINDINGS: Three views of the right shoulder are submitted. Osseous mineralization is normal. There is no fracture or dislocation. There is mild narrowing of the glenohumeral joint. There is moderate degenerative change of the AC joint. The soft tissues are unremarkable. XR/XR shoulder RT min 2V IMPRESSION: Degenerative changes of the right shoulder as described. Electronically signed by: Eben Pascual MD 10/09/2024 02:09 PM EDT
== END 2024-10-09 11:21 | disposition home or self-care (01) ==
LOC: HO.HMGCX 11:20
PROVIDERS: PCP Internal Medicine; Visit Provider Nurse Practitioner Family
DX: M25.511 Pain in right shoulder (principal); G89.29 Other chronic pain
CPT/HCPCS: 73030; 99212

== ENCOUNTER → 2024-10-09 13:41 | Outpatient (BNV) | payer OTHER, SELFPAY | PROVIDERS: PCP Internal Medicine; Visit Provider Radiology Diagnostic Radiology | DX: M25.511 Pain in right shoulder (principal) | CPT/HCPCS: 73030 ==

== ENCOUNTER 2024-12-18 08:57 | Outpatient (AMB) | payer OTHER, SELFPAY ==
--- NOTE | 2024-12-18 09:00 | A.OFFPC_ITS ---
Vital Signs 12/18/24 09:46 Height 5 ft 6 in Weight 210 lb BMI 33.9 BP 120/82 Blood Pressure Location Rt brachial Position Sitting Respiration 12 Pulse 69 Pulse Source Pulse Oximeter Temp 98.2 F Temp Source Oral Pulse Oximetry (%) 99 Oxygen Delivery Method Room Air Intake Visit Reasons: Annual Pe Intake Note: Pt is here for annual PE. Mammography- 02/24/24. pap 12/08/22 Allergies omeprazole [From Prilosec] Allergy (Mild, Verified 12/18/24 10:09) Swelling codeine Adverse Reaction (Verified 12/18/24 10:09) unknown Medication List - Last Reconciled 12/18/24 by Taryn Mannign MD acetaminophen (Tylenol Extra Strength) 1,000 mg PO Q6H PRN ibuprofen 400 - 600 mg PO Q4-6H PRN Tobacco use date assessed: 12/18/24 Dental Screening Dental Screen Date: 12/18/24 Did you have a dental visit in the last 12 months?: No Did you have a dental problem in the last 6 months where you did not have access to dental care?: No Was dental information given to patient?: Patient has dentist HPI Annual Pe HPI Details 64-year-old lady with history of dyslipi demia and impaired fasting gluc ose, here today for her physical exam.. She is up-to-date with her breast cancer screening, mammogram done last year with benign findings, due again in February this year. She is up-to-date with her cervical cancer screening, last done in 2022 with negative findings, will repeat again another 1 next year. Will check with insurance if bone density covered Patient thinks that her last colonoscopy done by Dr. River was in 2014, now due for recheck. Unable to do Cologuard test as she has been having frequent loose stools due to her IBS Complains of intermittent episodes of chest pressure on anterior chest when she walks, resolved spontaneously. This has been present now for the last several months. Chest pain at rest, no palpitations, no nausea or vomiting reported. [facility] Medical History Chest discomfort Right shoulder pain Hyperlipidemia Family history of thyroid disorder Menopause Impaired fasting glucose Hot flashes due to surgical menopause Uterine fibroid Environmental allergies Irritable bowel syndrome with mixed bowel habits Surgical History Hx of wisdom tooth extraction Hx of colonoscopy History of partial hysterectomy Family History Father Hypertension Skin cancer Alzheimer's dementia, late onset Mother Diabetes mellitus Thyroid disorder Sister Skin cancer Maternal Aunt Breast cancer, Onset Age: 61 Maternal Grandmother Myocardial infarction Maternal Uncle Myocardial infarction, Onset Age: 45 Social History Housing: House Alcohol intake: current Alcohol intake frequency: holidays/special occasions only Patient Tobacco Use Status: Never used Tobacco e-Cigarette/Vaping Use: Never Used service: No Current occupational status: retired Cognitive needs: No Hearing needs: No Vision needs: Yes Questionnaire PHQ-9 Over the last 2 weeks, how often have you been bothered by any of the following problems? 1. Little interest or pleasure in doing things: not at all 2. Feeling down, depressed, or hopeless: not at all 3. Trouble falling or staying asleep, or sleeping too much: several days 4. Feeling tired or having little energy: several days 5. Poor appetite or overeating: not at all 6. Feeling bad about yourself - or that you are a failure or have let yourself or your family down: not at all 7. Trouble concentrating on things, such as reading the newspaper or watching television: not at all 8. Moving or speaking so slowly that other people could have noticed. Or the opposite - being so fidgety or restless that you have been moving around a lot more than usual: not at all 9. Thoughts that you would be better off or of hurting yourself in some way: not at all Total score: 2 Depression Screening Interpretation: Negative Depression Screening Done: Yes Source: Developed by Drs. Eben Marte, Michelle Wright, Cale Solorzano and colleagues, with an educational abimbola from [employer]. Thrive Questionnaire Date Thrive assessed: 12/11/24 I am a: Patient What is your living situation today?: I have a steady place to live Within the past 12 months, did the food you bought not last and you didn't have the money to get more?: Never true Within the past 12 months, did you worry whether your food would run out before you got money to buy more?: Never true Do you have trouble paying for medicines?: No Do you have trouble getting transportation to medical appointments?: No Do you have trouble paying your heating and electricity bill?: No Do you have trouble taking care of your child, family member or friend?: No Do you have trouble with day-to-day activities such as bathing, preparing meals, shopping, managing finances, etc.?: No Are you currently unemployed and looking for a job?: No Are you interested in more education?: No Please select the resources that you would like help with: None Currently or been in a relationship where the following occur: No concerns reported THRIVE Score: 0 AUDIT C Alcohol Use Questionnaire (AUDIT-C) 1. How often do you have a drink containing alcohol?: 2-4 times a month 2. How many drinks containing alcohol do you have on a typical day when you are drinking?: 1 or 2 3. How often do you have six or more drinks on one occasion?: Never Total Score: 2 INOCENTE-7 AMB Questionnaire INOCENTE-7 Date INOCENTE - 7 assessed: 12/15/23 Feeling nervous, anxious, or on edge: 0 = Not at all Not being able to stop or control worryin = Not at all Worrying too much about different things: 0 = Not at all Trouble relaxin = Not at all Being so restless that it is hard to sit still: 0 = Not at all Becoming easily annoyed or irritable: 1 = Several days Feeling afraid as if something awful might happen: 0 = Not at all Total INOCENTE-7 score (0-4 normal; 5-9 mild; 10-14 moderate; 15-21 severe): 1 Source: Developed by Drs. Eben Marte, Michelle Wright, Cale Solorzano and colleagues, with an educational abimbola from [employer]. INOCENTE-7 Assessment Billing INOCENTE-7 Assessment Tool: INOCENTE-7 Assessment 07206 Review of Systems Const Denies body aches, Denies fatigue, Denies headache(s) and Denies weakness Eyes Details: Up-to-date with eye exam Denies change in vision ENT Details: Dental prophylaxis Q 6 months Denies dizziness and Denies headache(s) Card Reports as per HPI, Denies lightheadedness, Denies palpitations and Denies dyspnea Resp Denies chest congestion, Denies cough, Denies dyspnea and Denies wheezing GI Denies abdominal pain, Denies change in bowel habits and Denies heartburn Denies urinary frequency, Denies dysuria, Denies prolapse symptoms, Denies urinary incontinence and Denies urinary urgency Musc Reports no additional complaints Skin/Breast Denies lesions and Denies rash Neuro Denies dizziness, Denies headache(s) and Denies weakness Psych Reports no additional complaints Endo Denies fatigue, Denies polydipsia, Denies polyuria and Denies palpitations Rubén/Lymph Denies easy bruising Aller/Immun Reports seasonal rhinorrhea and Denies wheezing Physical exam (Primary Care) Vital Signs: Last Vital Signs Temp 98.2 F 12/18/24 09:46 Pulse 69 12/18/24 09:46 Resp 12 12/18/24 09:46 BP 120/82 12/18/24 09:46 Pulse Ox 99 12/18/24 09:46 Oxygen Delivery Method Room Air 12/18/24 09:46 BMI result Body Mass Index 33.9 Tobacco/Smoking Status: Tobacco use Status Tobacco use date assessed 12/18/24 12/18/24 09:51 Patient Tobacco Use Status Never used Tobacco 12/18/24 09:00 e-Cigarette/Vaping Use Never Used 12/18/24 09:00 PHQ-9: PHQ-9 Score PHQ-9: Total score 2 12/18/24 10:43 Depression Screening Interpretation: Negative Thrive Assessment: Date of Thrive Assessment Date Thrive assessed 12/11/24 12/18/24 09:00 Currently or been in a relationship where the following occur: No concerns reported Const Other: Alert oriented x3, no acute distress noted ambulatory with normal gait HENMT Ears: TM's normal bilaterally and EAC's normal General nose exam: Normal external nose present Face and sinus: Yes face symmetric Mouth: oropharynx normal and moist mucous membranes Eyes General: appearance normal, both eyes and all related structures Conjunctivae: conjunctivae normal Pupils: Equal, round and reactive pupils present EOM: EOMs intact bilaterally Neck Neck: Yes normal visual inspection, Yes full ROM and Yes supple Chest Chest palpation & inspection: normal inspection of the chest Breast/axilla palpation: normal palpation of the breasts and normal palpation of the axillae Resp Effort & Inspection: normal respiratory effort and able to speak in complete sentences Auscultation: clear to auscultation bilaterally Cardio Other: S1 and S2 present regular rate and rhythm, no murmur GI Palpation (GI): Soft to palpation, nontender, no guarding and no masses Auscultation: normal bowel sounds General: Yes no CVA tenderness Back/Spine/Pelvis Back: no CVA tenderness and No back tenderness Skin General skin exam: no rashes or lesions noted Neuro General: gait normal, tone normal, moves all extremities, Normal light touch and pain sensation, no focal motor deficits and CN's II-XI intact bilaterally Cranial nerves: Yes Equal, round and reactive pupils present Extrem General: Yes full ROM, Yes no joint enlargement, Yes no clubbing, cyanosis or edema, Yes no pedal edema, Yes no calf tenderness and Yes normal gait Psych Appearance: grossly normal and well kempt Mental Status: mental status grossly normal Speech and movement: Normal speech and movement present Affect: normal affect Coding Level of Care Code Est Pt Prev Care >65y(32014) Diagnoses Annual visit for general adult medical examination with abnormal findings Z00.01 Irritable bowel syndrome with mixed bowel habits K58.2 Environmental allergies Z91.09 Impaired fasting glucose R73.01 Hyperlipidemia E78.5 Chronic migraine without aura G43.709 Encounter for screening for malignant neoplasm of colon Z12.11 Chest discomfort R07.89 Screening for Malignant Neoplasm of Skin Z12.83 Additional Codes INOCENTE-7 Assessment Billing - INOCENTE-7 Assessment Tool: INOCENTE-7 Assessment 63482 ([id number]) Assessment & Plan Assessment & Plan (1) Annual visit for general adult medical examination with abnormal findings: Code(s): Z00.01 - Encounter for general adult medical examination with abnormal findings Plan: Will check appropriate labs. Continue dental visit every 6 months and regular eye exams, at least every 2 years, sees Dr. Mckeon. Take adequate calcium in diet and vitamin-D 3 at 2000 IU per cap once a day, in addition to weight- bearing exercises to help maintain good muscle tone and weight control. Check with insurance 1st to see a bone density scan is covered Instructed to do self- breast exam, and continue to get yearly mammogram, s. Up-to-date with her cervical cancer screening. Referred to [facility] for her colonoscopy screening . She has had Tdap in the past but does not want to get any further COVID booster declined flu shot or shingles vaccine. (2) Irritable bowel syndrome with mixed bowel habits: Code(s): K58.2 - Mixed irritable bowel syndrome Category: Medical Plan: * Stay away from foods that trigger symptoms. * Eat high-fiber foods. * Drink plenty of fluids. * Exercise regularly. Referred to [facility] for her repeat colonoscopy screening (3) Environmental allergies: Comment: Norberto Hook, started immunotherapy December 2021 Code(s): Z91.09 - Other allergy status, other than to drugs and biological substances Category: Medical Plan: [facility], gets immunology treatment (4) Impaired fasting glucose: Code(s): R73.01 - Impaired fasting glucose Category: Medical Plan: Your previous fasting blood sugars were elevated above 100 mg/dL. Fasting blood sugar and hemoglobin A1c ordered Impaired glucose metabolism increases the risk for developing diabetes mellitus type 2, as well as heart attack and stroke later on. Lifestyle changes that promotes weight loss, healthy eating habits, and regular exercise are important, and can prevent the progression to diabetes (5) Hyperlipidemia: Code(s): E78.5 - Hyperlipidemia, unspecified Category: Medical Plan: Fasting lipid panel ordered . Advised adherence to low-cholesterol diet and regular exercise, at least 30 minutes 3 to 4 times a week. Advised patient to make healthy food choices, eat more fruits, vegetables, whole grains, wild caught fish and low-fat dairy. Limit amount of meat and fried or fatty food products, as well as processed foods and fast foods. (6) Chronic migraine without aura: Code(s): G43.709 - Chronic migraine without aura, not intractable, without status migrainosus Category: Medical Plan: Currently followed by Neurology (7) Encounter for screening for malignant neoplasm of colon: Code(s): Z12.11 - Encounter for screening for malignant neoplasm of colon Plan: Referred to [facility] for her repeat colonoscopy screening (8) Chest discomfort: Code(s): R07.89 - Other chest pain Category: Medical Plan: EKG done today showed normal sinus rhythm with an incomplete right bundle branch block, no old EKG to compared with the. Periods stress test ordered, advised to follow-up after test done (9) Screening for Malignant Neoplasm of Skin: Code(s): Z12.83 - Encounter for screening for malignant neoplasm of skin Plan: Referred to Dr. Trammell for skin cancer screening Orders: Orders CA stress test 12/18/24 E78.5 - Hyperlipidemia, unspecified, R07.89 - Other chest pain AMB EKG-In Office 12/18/24 R07.89 - Other chest pain, Z13.6 - Encounter for screening for cardiovascular disorders Referrals Gastroenterology Referral K58.2 - Mixed irritable bowel syndrome, Z12.11 - Encounter for screening for malignant neoplasm of colon Dermatology Referral Z12.83 - Encounter for screening for malignant neoplasm of skin
[2024-12-18 09:46] VITALS: BP 120/82; PULSE 69; RESP 12; TEMP 36.8; O2SAT 99; BMI 33.9
== END 2024-12-18 10:49 | disposition home or self-care (01) ==
LOC: HO.HMCC 08:58
PROVIDERS: PCP Internal Medicine; Visit Provider Internal Medicine
DX: Z00.01 Encounter for general adult medical examination with abnormal findings (principal); K58.2 Mixed irritable bowel syndrome; Z91.09 Other allergy status, other than to drugs and biological substances; R73.01 Impaired fasting glucose; E78.5 Hyperlipidemia, unspecified; G43.709 Chronic migraine without aura, not intractable, without status migrainosus; Z12.11 Encounter for screening for malignant neoplasm of colon; R07.89 Other chest pain; Z12.83 Encounter for screening for malignant neoplasm of skin

== ENCOUNTER 2024-12-18 08:57 | Outpatient (REF) | payer OTHER, SELFPAY ==
[2024-12-18 13:29] LABS: Estimated Average Glucose 126 mg/dL; Hemoglobin A1C 139.9427 umol/L; Total Hemoglobin (HGBA1C) 3317.4587 umol/L
[2024-12-18 13:39] LABS: Alanine Aminotransferase 27 U/L (0-31); Anion Gap 13 (12-20); Aspartate Amino Transferase 26 U/L (5-31); Blood Urea Nitrogen 21 mg/dL (9-16); Calcium 9.8 mg/dL (8.4-10.2); Carbon Dioxide 27 mmol/L (22-29); Chloride 106 mmol/L (96-108); Cholesterol 206 mg/dL (<200); Estimated Glomerular Filt Rate > 60; Glucose Fasting 93 mg/dL (60-99); HDL Cholesterol 48 mg/dL (>40); LDL Cholesterol Calculated 139 mg/dL (<100); Potassium 4.2 mmol/L (3.3-5.1); Sodium 142 mmol/L (135-145); Triglycerides 97 mg/dL (<150)
[2024-12-18 14:01] LABS: Vitamin D 25-OH Total 36.3 ng/mL (>30)
== END 2024-12-18 08:58 | disposition home or self-care (01) ==
LOC: HO.HMGCLDS 08:57
PROVIDERS: PCP Internal Medicine; Visit Provider Internal Medicine
DX: Z00.01 Encounter for general adult medical examination with abnormal findings (principal); K58.2 Mixed irritable bowel syndrome; R73.01 Impaired fasting glucose; E78.5 Hyperlipidemia, unspecified; G43.709 Chronic migraine without aura, not intractable, without status migrainosus; R07.89 Other chest pain; Z91.09 Other allergy status, other than to drugs and biological substances; Z78.0 Asymptomatic menopausal state
CPT/HCPCS: 36415; 80048; 80061; 82306; 83036; 84450; 84460; 96127; 99396

== ENCOUNTER → 2025-01-30 08:24 | Outpatient (REF) | payer OTHER, SELFPAY ==
--- NOTE | 2025-01-30 08:27 | CA_ITS ---
Acquisition Time: 2025-01-30 08:24:42 Total Exercise Time: 00:05:00 Test Indications: CP Medications: NONE Protocol: ZEFERINO Max HR: 141 BPM 89% of Pred: 157 BPM Max BP: 180/60 mmHG Max Work Load: 7.0 METS Exercise stress test with exercise 5 mins of Zeferino Protocol, achieving 85% MPHR, with reports of SOB and 5/10 mid chest pressure, with isolated PACs, with normotensive repsonse to exercise. Without any EKG changes meeting criteria for ischemia. In recovery, chest pressure resolved quickly and SOB improved gradually. Will recommend nuclear stress test for further evaluation. Test reviewed with Dr. Webster. Referred By: Taryn Manning Electronically Signed By: Garfield Ozuna
--- OUTSIDE RECORDS SUMMARY | 2025-01-30 08:32 | XMS_ITS | Data Portability ---
Author Organization [place] - [facility], Allergy Address [address] [address] Care Team Providers Care Demolitionist Name Role Phone MARY BOUCHER Primary Care Provider [phone] Assessment Encounter Date Assessment Date Assessment LastModified [...] 6 months. [email or web address] Not available 04/12/2024 14:03:56 12/08/2024 12/08/2024 64-year-old female presents for 6-month allergy review. Discussed the possibility of discontinuing immunotherapy but she would like to continue for another 6 months. Follow-up at that time. Continue current regimen. [email or web address] Not available 12/08/2024 10:04:26 Plan of Treatment Reminders Order Date Submit Date Provider Last Modified By Organization Details Last Modified Time Details Appointments Establish ed- Allergy f-up 6mon 2024 11:15A M OLIVER CHEEMA PA-C Not available Not available Not available Lab None recorded. Referral None recorded. Procedures None recorded. Surgeries None recorded. Imaging None recorded. Medication Orders ipratropi um bromide 21 mcg (0.03 %) nasal spray 2023 024 [id number], [address] [place] [address], [id number], 04/12/2024 14:04:23 Patient TargetsNo targets recorded. Patient InstructionsNo instructions recorded. Reason for Referral None Reported. Problems Name Problem SNOMED Code Status Onset Date Resolution Date Notes Provider Name and Address Organization Details Recorded Time Impacted cerumen in right ear 94403388665 20075 Active 2022 Impacted cerumen, right ear; Note: Date Diagnosed : 04/20/2023 2:44 PM (H61.21) Not Available [facility] 4 02:52:17 Allergic rhinitis caused by pollen 22168925 Active 2022 Allergic rhinitis due to pollen; Note: Date Diagnosed : 04/20/2023 2:56 PM (J30.1) Not Available [facility] 4 02:52:15 Headache 68310941 Active 2022 Headache, unspecifi ed; Note: Changed from R51 to R51.9 ( 3 10:58 AM) , Date Diagnosed : 04/20/2023 2:56 PM (R51) Not Available [facility] 4 02:52:14 Migraine without aura 41870502 Active 2023 IRIS GILMORE MD [address] [place] [address], [place], [address] , [facility] - [facility] 4 17:03:18 Problem Notes None recorded. Medical Equipment None Reported. Medications Name Sig Start Date Stop Date Status Note LastModified by Organization Details LastModified Time alprazolam 0.25 mg tablet 12/08 completed Not Available Not Available Not Available magnesium oxide 400 mg (241.3 mg magnesium) tablet 12/08 completed Not Available Not Available Not Available ipratropium bromide 21 mcg (0.03 %) nasal spray Terreton 2 sprays twice a day by intranasa l route. active Not Available Not Available No t Available mometasone 0.1 % topical cream active Not Available Not Available Not Available riboflavin (vitamin B2) 400 mg tablet 12/08 completed Not Available Not Available Not Available Vitals Date Recorded Body height Body mass index (BMI) Body weight Provider Name and Address Organization Details Last Updated DateTime 12/08/2024 170.18 cm 32.4 kg/m2 36349.62 g Azra Haileangel [facility] 12/08/2024 09:41:16 Date Recorded Body height Body mass index (BMI) Body weight Provider Name and Address Organization Details Last Updated DateTime 04/12/2024 170.18 cm 33.7 kg/m2 25205.36 g Lilliam Tushar [facility] 04/12/2024 13:32:08 Social History None recorded. Functional Status None recorded. Mental Status None recorded. Family History Nothing Reported. Medical History No medical history recorded. Gynecological HistoryNo gynecological history recorded. Obstetrics History GPAL:G 0 P 0 0 0 0 Past Encounters Encounter ID Performer Location Encounter Start Date Encounter Closed Date Diagnosis/Indication Diagnosis SNOMED-CT Code Diagnosis ICD10 Code Diagnosis Note [id number] OLIVER CHEEMA PA-C [facility] [address] [address] 04/12/2024 13:07:14 04/12/2024 13:51:16 Allergic rhinitis caused by pollen 45799838 J30.1 Headache 59746559 R51.9 Migraine without aura 56 975713 G43.009 [id number] OLIVER CHEEMA PA-C [facility] [address] [address] 12/08/2024 09:29:04 12/08/2024 09:54:59 Allergic rhinitis caused by pollen 04519725 J30.1 Migraine without aura 56 930524 G43.009 Health Concerns Section Related Observation LastModified by Organization Detai ls LastModified Time None Recorded Concern Status LastModified by Organization Details LastModified Time None Recorded Advance Directives Directive None Recorded Payers Insurance Date Sequence Insurance Name Policy Number Policy Turner Covered Member ID Turner Member ID Guarantor Name 12/26/2024 1 [facility] (O) [id number] Ninfa Land [id number] [employer]a [employer] Notes Date Note Type Note Provider Name and Address Organization Details Recorded Time 04/12/2024 text/html 64-year-old femangel moscoso presents for reevaluation of seasonal allergies. [...] helping relieve her headaches. IRIS GILMORE MD [address] [place] [address], [address], [place] - [facility] 04/12/2024 17:03:33 12/08/2024 text/html 64-year-old manju moscoso presents for 6-month allergy review. She is currently on maintenance. Overall doing much better with her seasonal allergies. Not taking any allergy medication. IRIS GILMORE MD [address] [place] [address],[place] [address], [place], [address], [place] - [facility] 12/08/2024 12:44:29 OBGyn Episode No OBEpisode recorded.
== END ==
LOC: HO.CARD 08:24
PROVIDERS: PCP Internal Medicine; Visit Provider Internal Medicine
DX: R07.89 Other chest pain (principal); E78.5 Hyperlipidemia, unspecified
CPT/HCPCS: 93017

== ENCOUNTER → 2025-01-30 08:27 | Outpatient (BNV) | payer OTHER, SELFPAY | PROVIDERS: PCP Internal Medicine | DX: I49.1 Atrial premature depolarization (principal); R06.02 Shortness of breath | CPT/HCPCS: 93016; 93018 ==

== ENCOUNTER 2025-03-13 09:23 | Outpatient (AMB) | payer OTHER, SELFPAY ==
[2025-03-13 09:35] VITALS: BP 124/70; PULSE 83; O2SAT 95; BMI 34.1
--- NOTE | 2025-03-13 09:35 | A.OFFVIS_ITS ---
Vital Signs 03/13/25 09:35 Height 5 ft 6 in Weight 211 lb 8 oz BMI 34.1 BP 124/70 Blood Pressure Location Rt brachial Position Sitting Pulse 83 Pulse Source Pulse Oximeter Pulse Oximetry (%) 95 Oxygen Delivery Method Room Air Intake Visit Reasons: 6 mo follow up Intake Note: Patient presents 6 month follow up for migraines Systems Development Consultant Required: No Accompanied by: Self / Same As Patient Allergies omeprazole (From Prilosec) Allergy (Mild, Verified 03/13/25 09:36) Swelling codeine Adverse Reaction (Verified 03/13/25 09:36) unknown Medication List - Last Reconciled 03/13/25 by Lyndsey Schneider, PROSTHODONTIST/EDUCATOR acetaminophen (Tylenol Extra Strength) 1,000 mg PO Q6H PRN ibuprofen 400 - 600 mg PO Q4-6H PRN HPI Comments Details: 65-yr-old female for events for follow-up of possible migraine. She has noticed an increase in headaches in the last few weeks, which she attributes to hay fever. This headache is a bit different, now located in the base of her head or top of her head, more intense than her typical headache. She tried the sumatriptan, but it made her too sleepy. , previous HPI: Patient denies any significant medical history changes. She did PT, which has helped her headaches. She does continue to do her PT exercises. She notes, before she never really consider these to be headaches, but rather just her sinus symptoms. She still wakes up daily with post nasal drip and sinus congestion. She is having 1-2 bothersome headaches, which responds to OTC Tylenol or Ibuprofen. She states she never received sumatriptan. She tried riboflavin and magnesium, atorvastatin, states 1 of them cause loose stools. She does continue on allergy immunotherapy, which has decreased her sensitivity to her daughters cat however has not affected the postnasal drip/sinus congestion symptoms. Brain MRI showed age-related volume loss and mild signs of microangiopathic changes. Patient denies cognitive difficulties. BP is normotensive. Does have HLD- 12/15/2023 elevated total cholesterol 239 and LDL, 159 with normal triglycerides 96 and HDL 61. Patient generally cooks from scratching at home, follows typical Mediterranean type diet. She did try a migraine diet elimination trial, however she did not notice any benefit from this and is difficult to maintain. She does try to be physically active Her father of AD, dx'd at age 70- but had s/s earlier in hindsight, at about age 80. Her mother had dementia- pt feels it was likely secondary to worsening macular degeneration, and the subsequent social isolation this caused. 02/25/24, initial HPI: 64-yr-old female presents for new pt evaluation of possible migraine. Pt reports she has always had allergies, sinus, and postnasal drip issues. She started seeing an customer account administrator a couple of years ago, who started her on allergy shots however this did not help her postnasal drip s/s. She was then referred to ENT, who did sinus CT- which was clear and thus pt was referred here. She had taken sudafed for at least 20 yrs, and started taking it almost daily x's 15 yrs. If her head was really hurting she would take Tylenol to boost the pain relief . But stopped earlier this year per advise of ENT and customer account administrator. She states the congestion she was trying to treat was never in her nose, but more so in the frontal region. PMH and ROS are notable for:? Vision: Some blurry vision at times- thinks this is d/t her progressive glasses slipping down- sees her eye doctor regularly. Neuro: motion sickness if say in a car and tries to focus on something like reading or spinning rides, off-balance upon standing up quickly. Musculoskeletal disorders or injury: neck or mid-back pain- mostly when standing for awhile, possibly r/t her large breast size. History of syncope- Passed out during her 1st - was quite sick during that . And once became whoozy and had to sit down at [employer]- it was hot. never occurred again. GI d/o: h/o GERD- was r/t a certain medication use. IBS. Constipation: sometimes. Family history of migraine or other headache disorder: her dtr's. Pertinent denials include: History of concussion/head injury, Mood d/o, Respiratory d/o, CV disease, Clotting or hematology d/o, Endocrine d/o, metabolic d/o, History of seizure or drop attacks, Leg Cramps, Lifestyle considerations: Sleep routine: Usual bedtime: 11pm-1am and wake-up time: 5am Sleep difficulties: Usually sleeps ok, her may wake her up w/ his movements. Endorses: Snoring if on her back, possibly bruxism. Caffeine use: 2 cups per day in the am. Substance use: Alcohol- social when out to dinner Exercise:? Active at home. Walks on nice days. No structured exercise. 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 Headache questionnaire:? Typical headache characteristics: Prodrome symptoms: Unsure Aura: Unsure Pain intensity: moderate Location, quality, characteristics: Pressure/throbbing pain usually in bilateral temples and retrooribital regions. Occassional pain in top or back of head. Associated symptoms: at times, allodynia, nausea, rubbing her temples causes drainage from the psoterior orophraynx, prone to itchy/watery eyes, inner ears can be itching, Also: Right ear pain- right retro-auricular palpable pain that would radiate down right jaw. Postdrome: Unsure Triggers: If she lays down flat- this will cause nausea. Bending over and coming back up triggers the onset of nausea, head pressure. Also stress, weather changes, altitude changes. Time of day: No specific time of day Duration and Frequency: Hours to all day. How does headache impact your life? Usually pushes through it. Current acute medication use/interventions: Nothing Current preventative medication use: None. Using Georgiana prior to her allergy injections- but this tends to cause a mid-frontal headache. Non-pharmacological interventions: [facility] Medical History Chest discomfort Right shoulder pain Hyperlipidemia Family history of thyroid disorder Menopause Impaired fasting glucose Hot flashes due to surgical menopause Uterine fibroid Environmental allergies Irritable bowel syndrome with mixed bowel habits Surgical History Hx of wisdom tooth extraction Hx of colonoscopy History of partial hysterectomy Family History Father Hypertension Skin cancer Alzheimer's dementia, late onset Mother Diabetes mellitus Thyroid disorder Sister Skin cancer Maternal Aunt Breast cancer, Onset Age: 61 Maternal Grandmother Myocardial infarction Maternal Uncle Myocardial infarction, Onset Age: 45 Social History Housing: House Alcohol intake: current Alcohol intake frequency: holidays/special occasions only Patient Tobacco Use Status: Never used Tobacco e-Cigarette/Vaping Use: Never Used service: No Current occupational status: retired Cognitive needs: No Hearing needs: No Vision needs: Yes Physical Exam Vital Signs: Last Vital Signs Pulse 83 03/13/25 09:35 BP 124/70 03/13/25 09:35 Pulse Ox 95 03/13/25 09:35 Oxygen Delivery Method Room Air 03/13/25 09:35 BMI result Body Mass Index 34.1 Const Orientation/consciousness: patient oriented x3 Resp Effort & Inspection: normal respiratory effort and able to speak in complete sentences Neuro General: patient oriented x3 Cranial nerves: Yes CN's II-XII intact bilaterally Cognition (Neuro): normal cognition Gait exam (Neuro): Normal gait present Motor exam (neuro): 5/5 motor strength present throughout Coordination: [id number] test normal and Romberg test negative Psych Appearance: grossly normal Mental Status: mental status grossly normal Speech and movement: Normal speech and movement present Affect: normal affect Attitude: cooperative Thought process: Normal thought process present Results Reviewed Results Reviewed: [facility] MRN:[id number] Exam Date:?03/07/2024 PROCEDURE: MR BRAIN w + wo CONTRAST INDICATION: Headache with orthostatic component, not elsewhere classified. Bilateral temporal migraines and behind the eyes for twenty years. Nausea. Dizziness and giddiness. TECHNIQUE: Multi-planar, multi-sequence MR imaging of the brain was performed without and with intravenous contrast. 20 mL of Dotarem was administered intravenously. No contrast waste documented. COMPARISON: None Available. FINDINGS: Diffusion-weighted imaging demonstrates no area of restricted diffusion to suggest acute infarction. There is no intracranial hemorrhage, midline shift, mass effect, or extra-axial fluid collection. There are no areas of abnormal enhancement. There are mild scattered patchy areas of T2 prolongation within the subcortical and deep periventricular white matter, suggesting changes of chronic microvascular ischemia. Brain parenchyma otherwise demonstrates normal morphology and signal characteristics. Midline structures are within normal limits. Major intracranial vessels demonstrate preserved flow voids. Brain volume and ventricular system are within normal limits for age. Visualized paranasal sinuses are unremarkable. Orbits, globes, and mastoid air cells are unremarkable. IMPRESSION: No acute intracranial findings. Age-related global parenchymal volume loss. Assessment & Plan Assessment & Plan (1) Chronic migraine without aura: Code(s): G43.709 - Chronic migraine without aura, not intractable, without status migrainosus Category: Medical Qualifiers: Status migrainosus presence: without status migrainosus Intractability: not intractable Qualified Code(s): G43.709 - Chronic migraine without aura, not intractable, without status migrainosus (2) Motion sickness: Code(s): T75.3XXA - Motion sickness, initial encounter Category: Medical Qualifiers: Encounter type: sequela Qualified Code(s): T75.3XXS - Motion sickness, sequela (3) Positional headache: Code(s): R51.0 - Headache with orthostatic component, not elsewhere classified Category: Medical (4) Vertigo: Code(s): R42 - Dizziness and giddiness Category: Medical Plan 03/07/2024 Brain MRI w/wo report and imaging results with patient- mi nonspecific white matter changes, likely signs of chronic microangiopathy versus migraine vasculopathy, mild age-related generalized volume loss. * Continue to optimize cardiovascular and metabolic risk factors- such as maintaining optimal BP, cholesterol, and blood sugar control. If HDL pe rsists, patient may benefit from starting statin therapy. Encouraged to engage in regular physical, cognitive, social stimulating activities. * As patient's father has history of AD- likely starting in his 60s, patient to notify us if she notices any cognitive changes. For overall headache management: * Optimize good self-care, including but not limited to maintaining a healthy diet, adequate fluid intake, adequate sleep, and engaging in regular physical activity. * Track headaches. * Request referral back for PT eval and treat for headache and cervical neck tightness * In the meantime, continue previous PT exercises For acute headache treatment: * Discontinue Sumatriptan- not tolerated- caused sleepiness * Start diclofenac 50 mg twice a day as needed at onset of migraine. * Trial Naratriptan 2.5mg tab, 1/2 - 1 tab (1.25-2.5mg) at onset of headache, may repeat in 4 hours. Max of 2 tabs (5mg) per 24 hours. * If needed, may take naratriptan with diclofenac 50 mg * Or may take naratriptan with [id number] (OTC) Tylenol 650 -1000 mg every 4 -6 hours, or Ibuprofen (liquigel) 600mg every 6 hours, or Naproxen (liquigel) 440mg every 12 hrs as needed. * Potential adverse effects of naratriptan, include but are not limited to nausea, fatigue, chest tightness/tingling (usually passes within a few minutes), medication overuse headaches. * Previous acute migraine medication trials: Sumatriptan- not tolerated- caused sleepiness * Acute migraine medication contraindications: None at this time * For headache prevention medication: Patient is hesitant to add a preventative therapy at this time. Previous migraine prevention medication trials: None Migraine prevention medication contraindications: riboflavin 400 mg q.a.m. and Magnesium 400mg qhs- cause loose stools. Pt to follow-up in 6 months or sooner prn. Orders: Orders PT Evaluation and Treatment 03/13/25 G43.709 - Chronic migraine without aura, not intractable, without status migrainosus Medications: New naratriptan take 1/2 - 1 tab at onset of headache; if no relief may repeat 1 tab after at least 4 hrs; max = 2 tabs/24 hrs orally PRN; 12 tabs 6RF migraine headache 30 days diclofenac potassium 50 mg PO BID PRN 30 tabs 3RF pain 30 days Coding Level of Care Code Est Pt Level 4 (87924) Diagnoses Chronic migraine without aura without status migrainosus, not intractable G43.709 Status migrainosus presence: without status migrainosus Intractability: not intractable Motion sickness, sequela T75.3XXS Encounter type: sequela Positional headache R51.0 Vertigo R42
== END 2025-03-13 10:34 | disposition home or self-care (01) ==
LOC: HO.HSMS 09:24
PROVIDERS: PCP Internal Medicine; Visit Provider Nurse Practitioner Family
DX: G43.709 Chronic migraine without aura, not intractable, without status migrainosus (principal); T75.3XXS Motion sickness, sequela; R51.0 Headache with orthostatic component, not elsewhere classified; R42 Dizziness and giddiness
CPT/HCPCS: 99214

== ENCOUNTER → 2025-03-13 09:23 | Outpatient (BNVA) | payer OTHER, SELFPAY | PROVIDERS: PCP Internal Medicine; Visit Provider Nurse Practitioner Family | DX: G43.709 Chronic migraine without aura, not intractable, without status migrainosus (principal); T75.3XXS Motion sickness, sequela; R51.0 Headache with orthostatic component, not elsewhere classified; R42 Dizziness and giddiness | CPT/HCPCS: 99212 ==

== ENCOUNTER 2025-04-20 09:18 | Outpatient (REF) | payer OTHER, SELFPAY | END 2025-04-20 09:19 | disposition home or self-care (01) | LOC: HO.LAB 09:18 | PROVIDERS: PCP Internal Medicine; Visit Provider Nurse Practitioner Family | DX: Z12.11 Encounter for screening for malignant neoplasm of colon (principal); K21.9 Gastro-esophageal reflux disease without esophagitis; K58.2 Mixed irritable bowel syndrome | CPT/HCPCS: 36415; 86140; 86364; 99212 ==

== ENCOUNTER 2025-04-20 09:18 | Outpatient (AMB) | payer OTHER, SELFPAY ==
--- NOTE | 2025-04-20 09:25 | A.OFFVIS_ITS ---
Vital Signs 04/20/25 09:28 Height 5 ft 6 in Weight 211 lb BMI 34.1 BP 141/75 H Blood Pressure Location Lt brachial Position Sitting Pulse 88 Pulse Oximetry (%) 97 Oxygen Delivery Method Room Air Intake Visit Reasons: colo screening Intake Note: Patient new consult for 3rd pre Colonoscopy screening. [place] [facility] [place]. Patient cc: heartburn on and off, and between diarrhea and constipation on and off. Denies any other GI issues. Multiple Slide Operator Required: No Accompanied by: Self / Same As Patient Allergies omeprazole (From [employer]Tango) Allergy (Mild, Verified 04/20/25 09:25) Swelling codeine Adverse Reaction (Verified 04/20/25 09:25) unknown Medication List - Last Reconciled 04/20/25 by Mariah Shepherd CNP acetaminophen (Tylenol Extra Strength) 1,000 mg PO Q6H PRN diclofenac potassium 50 mg PO BID PRN 30 days ibuprofen 400 - 600 mg PO Q4-6H PRN naratriptan take 1/2 - 1 tab at onset of headache; if no relief may repeat 1 tab after at least 4 hrs; max = 2 tabs/24 hrs orally PRN; 30 days HPI HPI colo screening: Details: Patient is a 65-year-old female with PMH of hyperlipidemia. Referred by PCP for pre colonoscopy screening. Patient presents for pre-colonoscopy screening and evaluation of ongoing gastrointestinal symptoms. Reports long-term history of mixed bowel habits with both loose stools (up to [place] Type 6) and constipation (Type 4), occurring 10?15 times per week, with frequency and consistency fluctuating day-to-day. Abdominal pain is present and often relieved by defecation, especially after final bowel movement of the day. No hematochezia. No prior formal GI workup, but states an IBS diagnosis was given in the late based on symptoms. No regular use of medications for GI symptoms and does not take fiber supplements due to excessive gas. Reflux reported as intermittent, described as occasional indigestion, belching, mild regurgitation, with rare burning sensation; no dysphagia, odynophagia, nausea, vomiting, or appetite changes. Denies weight loss. Recent labs showed prediabetes and normal liver/kidney/thyroid function. Also undergoing cardiac workup after abnormal stress test for reported chest pressure; awaiting referral for nuclear stress test. No history of GI cancer or prior GI surgeries. No prior issues with anesthesia. Patient denies: fever/chills, n/v, appetite changes, dysphasia, unintentional wt loss or melena/hematochezia. Social hx: -ETOH use, 1x/week -denies recreational drug use -non-smoker - family hx as below -denies personal hx of CA -denies significant cardiopulmonary history -tolerated anesthesia in the past without difficulty. [facility] Medical History (Updated 04/20/25 @ 10:26 by Mariah Shepherd CNP) Acid reflux Colon cancer screening Chest discomfort Right shoulder pain Hyperlipidemia Family history of thyroid disorder Menopause Impaired fasting glucose Hot flashes due to surgical menopause Uterine fibroid Environmental allergies Irritable bowel syndrome with mixed bowel habits Surgical History Hx of wisdom tooth extraction Hx of colonoscopy History of partial hysterectomy Family History Father Hypertension Skin cancer Alzheimer's dementia, late onset Mother Diabetes mellitus Thyroid disorder Sister Skin cancer Maternal Aunt Breast cancer, Onset Age: 61 Maternal Grandmother Myocardial infarction Maternal Uncle Myocardial infarction, Onset Age: 45 Social History Housing: House Alcohol intake: current Alcohol intake frequency: holidays/special occasions only Patient Tobacco Use Status: Never used Tobacco e-Cigarette/Vaping Use: Never Used service: No Current occupational status: retired Cognitive needs: No Hearing needs: No Vision needs: Yes Review of Systems Const Reports as per HPI ENT Reports as per HPI Card Reports as per HPI Resp Reports as per HPI GI Reports as per HPI Reports as per HPI Physical Exam Vital Signs: Last Vital Signs Pulse 88 04/20/25 09:28 BP 141/75 H 04/20/25 09:28 Pulse Ox 97 04/20/25 09:28 Oxygen Delivery Method Room Air 04/20/25 09:28 BMI result Body Mass Index 34.1 Const General: healthy appearing, no acute distress and well developed Nutritional Appearance: average body habitus Orientation/consciousness: patient oriented x3 HEENT Head: Yes normal to inspection, Yes normocephalic and Yes atraumatic Face and sinus: Yes normal facial exam Eyes General: appearance normal, both eyes and all related structures Neck Neck: Yes normal visual inspection Resp Effort & Inspection: normal respiratory effort, able to speak in complete sentences, no tracheal deviation and symmetric chest movement Auscultation: clear to auscultation bilaterally Cardio Jugular venous distension: no JVD Rate: regular rate Rhythm: regular rhythm Heart sounds: S1 normal heart sound present, S2 normal heart sound present, no gallops and no murmurs GI Inspection: Yes normal to inspection, No distended and Yes obesity Palpation (GI): Soft to palpation, not firm, nontender and No hepatosplenomegaly present Auscultation: normal bowel sounds Neuro General: patient oriented x3 Gait exam (Neuro): Normal gait present Psych Appearance: grossly normal Mental Status: mental status grossly normal Speech and movement: Normal speech and movement present Affect: normal affect Attitude: cooperative Thought process: Normal thought process present Thought content: Normal thought content present Insight: Good insight present (Psych) Judgement: Good judgement present (Psych) Assessment & Plan Assessment & Plan (1) Colon cancer screening: Code(s): Z12.11 - Encounter for screening for malignant neoplasm of colon Category: Medical Plan: Due for third screening colonoscopy (last in 2014, prior normal studies), plus GI symptoms warranting further evaluation. Medications: -prescriptions for laxative tablets and PEG sent to pharmacy; instructions on clear liquid diet given. - understands to hold NSAIDs 7 days prior to procedure. - Use Tylenol if needed for pain. Patient educated on scheduling process, procedure preparation, including avoiding certain foods and ensuring clear liquid intake Advised on necessity for ride post-procedure due to sedation. (2) Acid reflux: Code(s): K21.9 - Gastro-esophageal reflux disease without esophagitis Category: Medical Qualifiers: Esophagitis presence: esophagitis presence not specified Qualified Code(s): K21.9 - Gastro-esophageal reflux disease without esophagitis Plan: Reported intermittent reflux symptoms?burping, mild regurgitation, rare burning sensation Additional Testing: - upper endoscopy (EGD) at time of colonoscopy given symptom duration and lack of recent upper GI evaluation Medication Management: None initiated; advise as needed for symptoms, review options if symptoms worsen Lifestyle Recommendations: Avoid identified dietary triggers as able, consider small meals VS large meals, elevation of head of bed if nocturnal symptoms Follow-Up: Review endoscopy results (if performed); otherwise as clinically indicated (3) Irritable bowel syndrome with mixed bowel habits: Code(s): K58.2 - Mixed irritable bowel syndrome Category: Medical Plan: Longstanding alternating bowel habits with both looseness and constipation, symptom relief with defecation, no red-flag features. Additional Testing: - Celiac serology - Inflammatory markers (CBC, CRP) - Fecal calprotectin for IBD r/o Medication Management: None prescribed at this time; options discussed, symptom- based approach to be considered after exclusion of other conditions Lifestyle Recommendations: - Increase dietary fiber through food sources as tolerated; avoid fiber supplements that exacerbate gas - Provide handout on high-fiber foods and low FODMAP diet - Maintain adequate hydration and physical activity Follow-Up: Pending results of blood and stool tests; further management to be tailored based on findings and patient tolerance Plan Patient expressed a strong preference for meeting endoscopist prior to endosocpy for comfort; option discussed for pre-procedure consult with GI physician, but patient elected to proceed given potential delays. Follow-up after endoscopy or sooner as needed Time: I spent a total of 45 minutes on the date of encounter which includes: Preparing to see the patient (reviewed previous documentation, test results and medical history) Performing a medically appropriate exam and/or evaluation Ordering medications, tests, and procedures Documenting clinical information in the health record Orders: Orders Transglutaminase IgA 04/20/25 K58.2 - Mixed irritable bowel syndrome C Reactive Protein 04/20/25 K58.2 - Mixed irritable bowel syndrome Calprotectin, Fecal 04/20/25 K58.2 - Mixed irritable bowel syndrome Referrals GI Procedure Notification K21.9 - Gastro-esophageal reflux disease without esophagitis, Z12.11 - Encounter for screening for malignant neoplasm of colon Medications: New peg 3350-electrolytes [id number] -5.86 gram until fecal effluent is clear 240 mL PO Q10M 4,000 mL 0RF simethicone (Gas Relief (simethicone)) per colonoscopy prep instructions 125 mg PO ONCE 4 caps 0RF abdominal distention bisacodyl Take per colonoscopy instructions 5 mg PO ONCE 4 tabs 0RF Coding Level of Care Code Established Pt Est Pt Level 4 (95128) Patient Type Established Diagnoses Colon cancer screening Z12.11 Gastroesophageal reflux disease, unspecified whether esophagitis present K21.9 Esophagitis presence: esophagitis presence not specified Irritable bowel syndrome with mixed bowel habits K58.2
[2025-04-20 09:28] VITALS: BP 141/75; PULSE 88; O2SAT 97; BMI 34.1
--- OUTSIDE RECORDS SUMMARY | 2025-04-20 09:47 | XMS_ITS | Data Portability ---
Author Organization [place] - [facility], Allergy Address [address] [address] Care Team Providers Care Boxing Instructor Name Role Phone MARY BOUCHER Primary Care Provider [phone] Assessment Encounter Date Assessment Date Assessment LastModified [...] Follow-up at that time. Continue current regimen. [email or web address] Not available 12/08/2024 10:04:26 Plan of Treatment [...] mcg (0.03 %) nasal spray 2023 024 [facility]/Pharmacy #[id number], [address] [place] [address], [address], 04/12/2024 14:04:23 Patient TargetsNo targets recorded. Patient InstructionsNo instructions recorded. Reason for Referral None Reported. Problems Name Problem SNOMED Code Status Onset Date Resolution Date Notes Provider Name and Address Organization Details Recorded Time Impacted cerumen in right ear 37025480775 36930 Active 2022 Impacted cerumen, right ear; Note: Date Diagnosed : 04/20/2023 2:44 PM (H61.21) Not Available [facility] 4 02:52:17 Allergic rhinitis caused by pollen 65902229 Active 2022 Allergic rhinitis due to pollen; Note: Date Diagnosed : 04/20/2023 2:56 PM (J30.1) Not Available [facility] 4 02:52:15 Headache 68717673 Active 2022 Headache, unspecifi ed; Note: Changed from R51 to R51.9 ( 3 10:58 AM) , Date Diagnosed : 04/20/2023 2:56 PM (R51) Not Available [facility] 4 02:52:14 Migraine without aura 60230152 Active 2023 IRIS GILMORE MD [address] [place] [address], [place], [address] , [facility] - [facility] 4 17:03:18 Problem Notes None recorded. Medical Equipment None Reported. Medications Name Sig Start Date Stop Date Status Note LastModified by Organization Details LastModified Time alprazolam 0.25 mg tablet 12/08 completed Not Available Not Available Not Available magnesium oxide 400 mg (241.3 mg magnesium) tablet 12/08 completed Not Available Not Available Not Available ipratropium bromide 21 mcg (0.03 %) nasal spray [place] 2 sprays twice a day by intranasa [...] Updated DateTime 12/08/2024 170.18 cm 32.4 kg/m2 27567.62 g Azra Haileangel [facility] 12/08/2024 09:41:16 Date Recorded Body height Body mass index (BMI) Body weight Provider Name and Address Organization Details Last Updated DateTime 04/12/2024 170.18 cm 33.7 kg/m2 29585.36 g Lilliam Tushar [facility] 04/12/2024 13:32:08 Social History None recorded. Functional Status None recorded. Mental Status None recorded. Family History Nothing Reported. Medical History No medical history recorded. Gynecological HistoryNo gynecological history recorded. Obstetrics History GPAL:G 0 P 0 0 0 0 Past Encounters Encounter ID Performer Location Encounter Start Date Encounter Closed Date Diagnosis/Indication Diagnosis SNOMED-CT Code Diagnosis ICD10 Code Diagnosis IMO Codes Diagnosis Note [id number] OLIVER CHEEMA PA-C [facility] [address] [address] 04/12/2024 13:07:14 04/12/2024 13:51:16 Allergic rhinitis caused by pollen 63242667 J30.1 Headache 70431248 R51.9 Migraine without aura 56 370022 G43.009 [id number] OLIVER CHEEMA PA-C [facility] [address] [address] 12/08/2024 09:29:04 12/08/2024 09:54:59 Allergic rhinitis caused by pollen 76214311 J30.1 Migraine without aura 56 229287 G43.009 Health Concerns Section Related Observation LastModified by Organization Detai ls LastModified Time None Recorded Concern Status LastModified by Organization Details LastModified Time None Recorded Advance Directives Directive None Recorded Payers Insurance Date Sequence Insurance Name Policy Number Policy Turner Covered Member ID Turner Member ID Guarantor Name 12/26/2024 1 [facility] (O) [id number] Ninfa Land [id number] Ninfa Land Notes Date Note Type Note Provider Name and Address Organization Details Recorded Time 04/12/2024 text/html ROS as noted in the HPI 64-year-old female presents for reevaluation of seasonal allergies. She [...] helping relieve her headaches. IRIS GILMORE MD [address] [place] [address], [phone], [facility] - [facility] 04/12/2024 17:03:33 12/08/2024 text/html ROS as noted in the HPI 64-year-old female presents for 6-month allergy review. She is currently on maintenance. Overall doing much better with her seasonal allergies. Not taking any allergy medication. IRIS GILMORE MD [address] [place] [address],[place] [address], [place], [address], [place] - [facility] 12/08/2024 12:44:29 OBGyn Episode No OBEpisode recorded.
== END 2025-04-20 10:27 | disposition home or self-care (01) ==
LOC: HO.HGI 09:19
PROVIDERS: PCP Internal Medicine; Visit Provider Nurse Practitioner Family
DX: Z01.818 Encounter for other preprocedural examination (principal); Z12.11 Encounter for screening for malignant neoplasm of colon; K58.2 Mixed irritable bowel syndrome; K21.9 Gastro-esophageal reflux disease without esophagitis
CPT/HCPCS: 99214

== ENCOUNTER → 2025-05-22 07:52 | Outpatient (REF) | payer OTHER, SELFPAY ==
--- NOTE | ~2025-05-22 | NM_ITS ---
EXERCISE MYOCARDIAL PERFUSION STUDY INDICATION: Chest pain TECHNIQUE: The patient was brought in for an exercise perfusion study on 05/22/2025. Patient performed exercise as per Jose Cruz protocol and was injected 30 mCi of sestamibi once target heart rate was achieved. Images were obtained using the SPECT gamma camera interlaced with the gating device. Images were obtained in supine position. Resting perfusion study was performed on 05/23/2025. Patient was administered 30 mCi of sestamibi intravenously at rest. Images were then obtained in supine position. Total DLP 143 mGy-cm. Images were processed with the software and compared side to side in short axis, horizontal long axis and vertical long axis views. FINDINGS: Raw aquisition reviewed. The stress perfusion study showed decreased tracer uptake in the mid to distal part lateral wall. There is improvement with CT attenuation correction suggestive of soft tissue attenuation artifact. The gated study shows normal LV systolic function with calculated LVEF of 70%. LV cavity is normal in size. The gated study shows reduced thickening and contractility in the distal lateral wall. Resting study shows no significant perfusion abnormality. Gating at rest reveals normal wall motion with ejection fraction at 67%. The findings are consistent with reversal lateral defect in the mid to distal portion. NM/NM cardiolite stress test IMPRESSION: 1. Myocardial perfusion imaging study shows lateral wall ischemia. 2. Gated LVEF is 70% during stress and 67% during rest. 3. Transient ischemic dilatation not present. EKG component of the test reported separately. Electronically signed by: Yoandy Webster MD 05/24/2025 08:46 AM [facility]
--- NOTE | 2025-05-22 07:55 | CA_ITS ---
Acquisition Time: 2025-05-22 08:03:43 Total Exercise Time: 00:05:01 Test Indications: CP,Abnormal Treadmill Test Medications: NONE Protocol: ZEFERINO Max HR: 136 BPM 87% of Pred: 156 BPM Max BP: 196/50 mmHG Max Work Load: 7.0 METS Exericse stress test with exercise 5 mins 1 sec of Zeferino Protocol, achieving 87% MPHR, with reports of 2/10 left sided chest tightness and SOB, with isolated PVCs, with normotenisve response to exercise. Without any EKG changes meeting criteria for ischemia. In recovery, chest tightness resolved and breathing improved to baseline. Nuclear images pending. Test reviewed with Dr. Guaman. Referred By: Taryn Manning Electronically Signed By: Garfield Ozuna
--- OUTSIDE RECORDS SUMMARY | 2025-05-22 07:56 | XMS_ITS | Data Portability ---
Author Organization [place] - [facility], Allergy Address [address] [address] Care Team Providers Care Gopherman Name Role Phone MARY BOUCHER Primary Care Provider [phone] Assessment Encounter Date Assessment Date Assessment LastModified [...] Follow-up at that time. Continue current regimen. [email or web address] Not available 12/08/2024 10:04:26 Plan of Treatment [...] mcg (0.03 %) nasal spray 2023 024 [facility]/Pharmacy #[id number], [address] [place] [address], [address], 04/12/2024 14:04:23 Patient TargetsNo targets recorded. Patient InstructionsNo instructions recorded. Reason for Referral None Reported. Problems Name Problem SNOMED Code Status Onset Date Resolution Date Notes Provider Name and Address Organization Details Recorded Time Impacted cerumen in right ear 82904162697 28923 Active 2022 Impacted cerumen, right ear; Note: Date Diagnosed : 04/20/2023 2:44 PM (H61.21) Not Available [facility] 4 02:52:17 Allergic rhinitis caused by pollen 54727570 Active 2022 Allergic rhinitis due to pollen; Note: Date Diagnosed : 04/20/2023 2:56 PM (J30.1) Not Available [facility] 4 02:52:15 Headache 94635302 Active 2022 Headache, unspecifi ed; Note: Changed from R51 to R51.9 ( 3 10:58 AM) , Date Diagnosed : 04/20/2023 2:56 PM (R51) Not Available [facility] 4 02:52:14 Migraine without aura 31814807 Active 2023 IRIS GILMORE MD [address] [place] [address], [place], [address] , [facility] - [facility] 4 17:03:18 Problem Notes None recorded. Medical Equipment None Reported. Medications Name Sig Start Date Stop Date Status Note LastModified by Organization Details LastModified Time alprazolam 0.25 mg tablet 12/08 completed Not Available Not Available Not Available magnesium oxide 400 mg (241.3 mg magnesium) tablet 12/08 completed Not Available Not Available Not Available ipratropium bromide 21 mcg (0.03 %) nasal spray [place] 2 sprays twice a day by intranasa [...] Updated DateTime 12/08/2024 170.18 cm 32.4 kg/m2 24840.62 g Azra Haileangel [facility] 12/08/2024 09:41:16 Date Recorded Body height Body mass index (BMI) Body weight Provider Name and Address Organization Details Last Updated DateTime 04/12/2024 170.18 cm 33.7 kg/m2 23212.36 g Lilliam Tushar [facility] 04/12/2024 13:32:08 Social History None recorded. Functional Status None recorded. Mental Status None recorded. Family History Nothing Reported. Medical History No medical history recorded. Gynecological HistoryNo gynecological history recorded. Obstetrics History GPAL:G 0 P 0 0 0 0 Past Encounters Encounter ID Performer Location Encounter Start Date Encounter Closed Date Diagnosis/Indication Diagnosis SNOMED-CT Code Diagnosis ICD10 Code Diagnosis IMO Codes Diagnosis Note [id number] OLIVER CHEEMA PA-C [facility] [address] [address] 04/12/2024 13:07:14 04/12/2024 13:51:16 Allergic rhinitis caused by pollen 88201578 J30.1 Headache 87643438 R51.9 Migraine without aura 56 985301 G43.009 [id number] OLIVER CHEEMA PA-C [facility] [address] [address] 12/08/2024 09:29:04 12/08/2024 09:54:59 Allergic rhinitis caused by pollen 48699126 J30.1 Migraine without aura 56 718648 G43.009 Health Concerns Section Related Observation LastModified by Organization Detai ls LastModified Time None Recorded Concern Status LastModified by Organization Details LastModified Time None Recorded Advance Directives Directive None Recorded Payers Insurance Date Sequence Insurance Name Policy Number Policy Turner Covered Member ID Turner Member ID Guarantor Name 12/26/2024 1 [facility] (O) [id number] Ninfa Land [id number] Ninfa Land Notes Date Note Type Note [...] relieve her headaches. IRIS GILMORE MD [address] [place] [address], [address], [facility] - [facility] 04/12/2024 17:03:33 12/08/2024 text/html ROS as noted in the HPI 64-year-old female presents for 6-month allergy review. She is currently on maintenance. Overall doing much better with her seasonal allergies. Not taking any allergy medication. IRIS GILMORE MD [address] [place] [address],[place] [address], [place], [address], [place] - [facility] 12/08/2024 12:44:29 OBGyn Episode No OBEpisode recorded.
== END ==
LOC: HO.CARD 07:52
PROVIDERS: PCP Internal Medicine; Visit Provider Internal Medicine
DX: R07.89 Other chest pain (principal); E78.5 Hyperlipidemia, unspecified
CPT/HCPCS: 78452; 93017; A9500

== ENCOUNTER → 2025-05-22 07:55 | Outpatient (BNV) | payer OTHER, SELFPAY | PROVIDERS: PCP Internal Medicine | DX: I49.3 Ventricular premature depolarization (principal); R07.89 Other chest pain; R06.02 Shortness of breath | CPT/HCPCS: 78452; 93016; 93018 ==

== ENCOUNTER 2025-05-28 14:06 | Outpatient (AMB) | payer OTHER, SELFPAY ==
[2025-05-28 14:10] VITALS: BP 118/66; PULSE 82; BMI 33.8
--- NOTE | 2025-05-28 14:10 | MHC.OFFVIS ---
Vital Signs 05/28/25 14:10 Height 5 ft 6 in Weight 209 lb 7.026 oz BMI 33.8 BP 118/66 Blood Pressure Location Lt brachial Position Sitting Pulse 82 Pulse Source Pulse Oximeter Intake Visit Reasons: Abnormal result of other cardiovascular function Allergies omeprazole (From Prilosec) Allergy (Mild, Verified 04/20/25 09:25) Swelling codeine Adverse Reaction (Verified 04/20/25 09:25) unknown Medication List - Last Reconciled 05/28/25 by Yoandy Webster MD acetaminophen (Tylenol Extra Strength) 1,000 mg PO Q6H PRN ibuprofen 400 - 600 mg PO Q4-6H PRN HPI Comments Details: Ninfa is here for consultation regarding chest pains. Over the last year or so, she has been having exertional chest pains. She gets a discomfort in the chest with activities like walking or doing stairs. She states that sometimes when she gets a pains she continues to do her physical activities and the pain may get better. Has not had any previous workup. Recently completed a stress test and that was abnormal and hence she is here for consultation. No previously diagnosed coronary disease or myocardial infarction or cardiomyopathy. [facility] Medical History (Updated 05/24/25 @ 17:53 by Taryn Manning MD) Abnormal stress test Acid reflux Colon cancer screening Chest discomfort Right shoulder pain Hyperlipidemia Family history of thyroid disorder Menopause Impaired fasting glucose Hot flashes due to surgical menopause Uterine fibroid Environmental allergies Irritable bowel syndrome with mixed bowel habits Surgical History Hx of wisdom tooth extraction Hx of colonoscopy History of partial hysterectomy Family History Father Hypertension Skin cancer Alzheimer's dementia, late onset Mother Diabetes mellitus Thyroid disorder Sister Skin cancer Maternal Aunt Breast cancer, Onset Age: 61 Maternal Grandmother Myocardial infarction Maternal Uncle Myocardial infarction, Onset Age: 45 Social History Housing: House Alcohol intake: current Alcohol intake frequency: holidays/special occasions only Patient Tobacco Use Status: Never used Tobacco e-Cigarette/Vaping Use: Never Used service: No Current occupational status: retired Cognitive needs: No Hearing needs: No Vision needs: Yes Review of Systems Const Denies weakness ENT Denies dizziness Card Reports chest pain, Reports chest pain with activity, Denies syncope, Denies rapid heart rate, Denies pedal edema, Denies edema, Denies leg edema, Denies lightheadedness, Denies palpitations, Reports dyspnea, Reports dyspnea on exertion and Denies orthopnea Resp Denies cough, Reports dyspnea and Reports dyspnea on exertion GI Denies hematochezia and Denies change in stool character Musc Denies abnormal gait, Denies muscle cramps, Denies muscle weakness, Denies numbness, Denies radiating pain into limb and Denies tingling Neuro Denies abnormal gait, Denies dizziness, Denies syncope, Denies numbness, Denies tingling and Denies weakness Endo Denies palpitations Physical Exam Vital Signs: Last Vital Signs Pulse 82 05/28/25 14:10 BP 118/66 05/28/25 14:10 BMI result Body Mass Index 33.8 Const General: comfortable and no acute distress Orientation/consciousness: patient oriented x3 HEENT Other: Unremarkable Head: Yes normal to inspection Neck Neck: Yes normal visual inspection Chest Chest palpation & inspection: normal inspection of the chest Resp Auscultation: clear to auscultation bilaterally Cardio Palpation: normal PMI Heart sounds: S1 normal heart sound present, S2 normal heart sound present, no gallops, no murmurs and no rubs GI Palpation (GI): Soft to palpation Back/Spine/Pelvis Other: unremarkable Skin General skin exam: no rashes or lesions noted Neuro General: patient oriented x3 Extrem General: Yes normal to inspection Psych Mental Status: mental status grossly normal Assessment & Plan Assessment & Plan (1) Chest discomfort: Code(s): R07.89 - Other chest pain Category: Medical (2) Abnormal stress test: Code(s): R94.39 - Abnormal result of other cardiovascular function study Category: Medical Plan In the EKG, underlying rhythm is sinus at 62/Min; incomplete right bundle-branch block; normal MS and corrected QT. During the exercise stress test, she was able to exercise for 7 METS on Jose Cruz protocol and reached target heart rate. 5/10 mid chest pressure. No EKG evidence of ischemia. Repeated with perfusion imaging and that showed lateral wall ischemia. Overall, exertional chest pain symptoms for the last year, abnormal testing as above. She needs a diagnostic catheterization for evaluation. We discussed about this today and she is willing to proceed. We will arrange that in the near future. In the interim, start medical therapy including aspirin, beta-blockers, statins and sublingual nitroglycerin as needed. We will also get an echocardiogram for cardiac function and wall motion abnormalities. Follow-up after the above. Discussion Notes I discussed with the patient the likelihood of angina as the cause of her chest pain, which occurs with exertion and subsides with rest. We reviewed the stress test results indicating reduced blood supply to the heart's lateral wall, suggesting a possible blockage. I explained the angiogram procedure, including the potential for stent placement if a blockage is confirmed. The patient was informed about starting baby aspirin, metoprolol, and nitroglycerin for symptom management and was advised on the use of statins for cholesterol control. We discussed the risks and benefits of the angiogram and stent placement, emphasizing the low risk of complications given her overall health status. Patient was informed and verbally consented to the use of an ambient scribe for clinic note documentation during this visit. Orders: Orders CA echo transthoracic complete Today I25.10 - Atherosclerotic heart disease of [place] coronary artery without angina pectoris, R07.89 - Other chest pain Basic Metabolic Panel Today R07.89 - Other chest pain Prothrombin Time INR Today R07.89 - Other chest pain Cardiac Cath LT w PCI Today I25.10 - Atherosclerotic heart disease of [place] coronary artery without angina pectoris, R07.89 - Other chest pain Complete Blood Count no Diff Today R07.89 - Other chest pain Medications: New metoprolol succinate ER (Toprol XL) 25 mg PO DAILY 90 tabs 3RF nitroglycerin do not exceed 3 doses per episode 0.4 mg sublingual Q5M PRN 30 tabs 5RF chest pain R07.2 - Precordial pain atorvastatin (Lipitor) 40 mg PO QPM 90 tabs 1RF Patient Instructions: - Take baby aspirin daily to thin your blood. - Start metoprolol as prescribed to manage chest pain. - Use nitroglycerin under your tongue for chest pain relief. - Monitor your blood pressure regularly. - Begin statin therapy for cholesterol management. - Follow up for an angiogram to assess for coronary artery blockage. - Avoid any strenuous physical activities for now. Coding Level of Care Code New Pt Level 5 (10872) Complex EM visit Add On G2211 Diagnoses Chest discomfort R07.89 Abnormal stress test R94.39
--- OUTSIDE RECORDS SUMMARY | 2025-05-28 16:27 | XMS_ITS | Data Portability ---
Author Organization [place] - [facility], Allergy Address [address] [address] Care Team Providers Care Senior Principal Process Engineer Name Role Phone MARY BOUCHER Primary Care [...] Follow-up at that time. Continue current regimen. [email or web address] Not available 12/08/2024 10:04:26 Plan of Treatment [...] mcg (0.03 %) nasal spray 2023 024 [facility]/Pharmacy #[id number], [address] [place] [address], [address], 04/12/2024 14:04:23 Patient TargetsNo targets recorded. Patient InstructionsNo instructions recorded. Reason for Referral None Reported. Problems Name Problem SNOMED Code Status Onset Date Resolution Date Notes Provider Name and Address Organization Details Recorded Time Impacted cerumen in right ear 89267694190 52493 Active 2022 Impacted cerumen, right ear; Note: Date Diagnosed : 04/20/2023 2:44 PM (H61.21) Not Available [facility] 4 02:52:17 Allergic rhinitis caused by pollen 61880934 Active 2022 Allergic rhinitis due to pollen; Note: Date Diagnosed : 04/20/2023 2:56 PM (J30.1) Not Available [facility] 4 02:52:15 Headache 53144954 Active 2022 Headache, unspecifi ed; Note: Changed from R51 to R51.9 ( 3 10:58 AM) , Date Diagnosed : 04/20/2023 2:56 PM (R51) Not Available [facility] 4 02:52:14 Migraine without aura 46863218 Active 2023 IRIS GILMORE MD [address] [place] [address], [place], [address] , [facility] - [facility] 4 17:03:18 Problem Notes None recorded. Medical Equipment None Reported. Medications Name Sig Start Date Stop Date Status Note LastModified by Organization Details LastModified Time alprazolam 0.25 mg tablet 12/08 completed Not Available Not Available Not Available magnesium oxide 400 mg (241.3 mg magnesium) tablet 12/08 completed Not Available Not Available Not Available ipratropium bromide 21 mcg (0.03 %) nasal spray [place] 2 sprays twice a day by intranasa [...] Updated DateTime 12/08/2024 170.18 cm 32.4 kg/m2 56908.62 g Azra Haileangel [facility] 12/08/2024 09:41:16 Date Recorded Body height Body mass index (BMI) Body weight Provider Name and Address Organization Details Last Updated DateTime 04/12/2024 170.18 cm 33.7 kg/m2 94874.36 g Lilliam Tushar [facility] 04/12/2024 13:32:08 Social History None recorded. Functional Status None recorded. Mental Status None recorded. Family History Nothing Reported. Medical History No medical history recorded. Gynecological HistoryNo gynecological history recorded. Obstetrics History GPAL:G 0 P 0 0 0 0 Past Encounters Encounter ID Performer Location Encounter Start Date Encounter Closed Date Diagnosis/Indication Diagnosis SNOMED-CT Code Diagnosis ICD10 Code Diagnosis IMO Codes Diagnosis Note [id number] OLIVER CHEEMA PA-C [facility] [address] [address] 04/12/2024 13:07:14 04/12/2024 13:51:16 Allergic rhinitis caused by pollen 06305850 J30.1 Headache 63476038 R51.9 Migraine without aura 56 574996 G43.009 [id number] OLIVER CHEEMA PA-C [facility] [address] [address] 12/08/2024 09:29:04 12/08/2024 09:54:59 Allergic rhinitis caused by pollen 54629680 J30.1 Migraine without aura 56 833220 G43.009 Health Concerns Section Related Observation LastModified by Organization Detai ls LastModified Time None Recorded Concern Status LastModified by Organization Details LastModified Time None Recorded Advance Directives Directive None Recorded Payers Insurance Date Sequence Insurance Name Policy Number Policy Turner Covered Member ID Turner Member ID Guarantor Name 12/26/2024 1 [facility] (O) [id number] Ninfa Land [id number] Nnifa Land Notes Date Note Type Note Provider [...] helping relieve her headaches. IRIS GILMORE MD [address] [place] [address], [address], [facility] - [facility] 04/12/2024 17:03:33 12/08/2024 text/html ROS as noted in the HPI 64-year-old female presents for 6-month allergy review. She is currently on maintenance. Overall doing much better with her seasonal allergies. Not taking any allergy medication. IRIS GILMORE MD [address] [place] [address],[place] [address], [place], [address], [place] - [facility] 12/08/2024 12:44:29 OBGyn Episode No OBEpisode recorded.
== END 2025-05-28 14:55 | disposition home or self-care (01) ==
LOC: HO.HCS 14:06
PROVIDERS: PCP Internal Medicine; Visit Provider Internal Medicine
DX: R07.89 Other chest pain (principal); R94.39 Abnormal result of other cardiovascular function study
CPT/HCPCS: 99214

== ENCOUNTER → 2025-05-28 14:06 | Outpatient (BNVA) | payer OTHER, SELFPAY | PROVIDERS: PCP Internal Medicine; Visit Provider Internal Medicine | DX: R07.89 Other chest pain (principal); R94.39 Abnormal result of other cardiovascular function study | CPT/HCPCS: 99212 ==

== ENCOUNTER → 2025-06-19 08:59 | Outpatient (REF) | payer OTHER, SELFPAY ==
--- NOTE | 2025-06-19 09:02 | CA_ITS ---
Transthoracic Echocardiogram Patient (Last, First, Middle): Ninfa Land, Gender: F Date of : 1960 Age: 65 Procedure Date: 06/19/2025 Procedure Type: Transthoracic Echocardiogram Location: OP Height: 167.64 cm Weight: 94.8 kg BSA: 2.04 m2 Heart Rate: 63 bpm BP: 118 / 66 mmHg Law Instructor: NAIF Referring MD: Yoandy Webster MD Symptoms: I25.10 - Atherosclerotic heart disease of [place] coronary artery without... Study Quality: Adequate ECG Rhythm: Sinus Conclusions: - The left ventricular systolic function is normal. The calculated ejection fraction is 62% by biplane method. - No obvious valvular pathology seen on this study. Findings Left Ventricle Normal left ventricular cavity size. There is normal left ventricular wall thickness. The left ventricular systolic function is normal. The calculated ejection fraction is 62% by biplane method. There is no evidence of regional wall motion abnormalities. Diastolic function is normal for age. Right Ventricle Normal right ventricular cavity size and systolic function. Atria Both atria are normal in size. Aortic Valve There is a normal trileaflet aortic valve. There is no aortic valve stenosis. There is no aortic valve regurgitation. Mitral Valve The mitral valve appears normal. There is no mitral valve regurgitation. There is no mitral valve stenosis. Pulmonic Valve The pulmonic valve is likely normal. Tricuspid Valve There is trace tricuspid valve regurgitation. There is no evidence of pulmonary hypertension. Great Vessels The asc aorta and aortic arch are normal in size. Venous The inferior vena cava is mildly dilated and collapses greater than 50% with inspiration. Pericardium/Pleural There is no evidence of pericardial effusion. Prior Study Comparison No prior study available for comparison. Recommendations, Care & Conclusions No obvious valvular pathology seen on this study. Measurements 2D Linear Measurements IVSd: 1.00 0.6-0.9/0.6-1.0 cm LVIDd: 5.02 3.9-5.3/4.2-5.9 cm LVIDd Index: 2.46 2.4-3.2/2.2-3.1 cm/m2 LVIDs: 2.96 2.0-3.6 cm LVPWd: 0.70 0.7-1.1 cm LA Diam: 4.00 2.7-3.8/3.0-4.0 cm LAIDs Index: 1.96 1.5-2.3 cm/m2 LV Mass: 184.18 67-162/88-224 g LV Mass Index: 90.28 43-95/49-115 g/m2 LVOT Diam: 2.30 3.0+(-)1.3 cm 2D Systolic Function EF 4C: 58.50 >55% EF 2C: 63.10 >55% EF BiP: 61.70 >55% Mitral Valve MV Pk E: 0.74 MV PK A: 0.67 MV Decel Time: 248.00 E/A: 1.10 E'Lateral: 10.40 E'Medial: 7.40 E/E' Med: 10.00 E/E' Lat: 7.10 PHT: 73.00 MVA PHT: 3.01 Decel Lander: 2.97 Aortic Valve AoV Pk Jesus: 1.08 AoV Mn Jesus: 0.82 AoV VTI: 0.29 AoV Pk Grad: 5.00 Aov Mn Grad: 3.00 BRIAN Cont.VTI: 2.90 LVOT LVOT Pk Jesus: 0.77 LVOT Mn Jesus: 0.53 LVOT VTI: 0.20 LVOT Pk Grad: 2.00 LVOT Mn Grad: 1.00 LVOT Diam: 2.30 LVOT Area: 4.15 Diastolic Function MV Pk E: 0.74 MV Pk A: 0.67 E/A: 1.10 E'Medial: 7.40 E/E' Med: 10.00 E' Laterial: 10.40 E/E' Lat: 7.10 Right Ventricle TAPSE (mm): 27.80 TVS' Jesus: 13.10 Tricuspid Valve TR Pk Jesus: 1.49 TR Pk Grad: 9.00 RA Press: 8.00 RVSP: 17.00 Great Vessels Aorta Sinus of Valsalva: 3.94 2.0-3.[address] Ridge: 3.27 1.7-3.4 cm Ao Asc: 3.60 2.1-3.4 cm Ao Arch: 3.00 Pulmonary Veins Pulm Vein S/D 1.10 Updated in Other Vendor System with Status of Final Yoandy Webster MD electronically signed on 06/20/2025 4:26:12 PM with status of Final
--- OUTSIDE RECORDS SUMMARY | 2025-06-19 09:22 | XMS_ITS | Data Portability ---
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 Continue current regimen. [email or web address] Not available 12/08/2024 10:04:26 06/11/2025 06/11/2025 65-year-old female presents for reevaluation. Discussed again discontinuing immunotherapy but she is not quite ready to make this change yet. Will reconsider in the spring. In terms of throat clearing is likely multifactorial related to her acid reflux and postnasal drip. She seems most bothered by postnasal drip so recommended a trial of Atrovent and instructed her in proper use. She has not tried this nasal spray prior. If she tries this for 4 to 6 weeks and is not beneficial she will switch to famotidine as she cannot tolerate Prilosec. Will revisit in 6 months. [email or web address] Not available 06/11/2025 12:17:19 Plan of Treatment Reminders Order Date Submit Date Provider Last Modified By Organization Details Last Modified Time Details Appointments Establish ed 15 2025 09:00A M OLIVER CHEEMA PA-C Not available Not available Not available Lab None recorded. Referral None recorded. Procedures None recorded. Surgeries None recorded. Imaging None recorded. Medication Orders famotidin e 20 mg tablet 2024 025 [id number] [address] [place], [address], 06/11/2025 12:23:43 ipratropi um bromide 21 mcg (0.03 %) nasal spray 2024 025 [id number] [address] [place], [address], 06/11/2025 12:23:44 ipratropi um bromide 21 mcg (0.03 %) nasal spray 2023 024 [id number] [address] [place], [address], 04/12/2024 14:04:23 Patient TargetsNo targets recorded. Patient InstructionsNo instructions recorded. Reason for Referral None Reported. Problems Name Problem SNOMED Code Status Onset Date Resolution Date Notes Provider Name and Address Organization Details Recorded Time Impacted cerumen in right ear 48346979951 57666 Active 2022 Impacted cerumen, right ear; Note: Date Diagnosed : 04/20/2023 2:44 PM (H61.21) Not Available [facility] 4 02:52:17 Allergic rhinitis caused by pollen 15557266 Active 2022 Allergic rhinitis due to pollen; Note: Date Diagnosed : 04/20/2023 2:56 PM (J30.1) Not Available [facility] 4 02:52:15 Headache 24997485 Active 2022 Headache, unspecifi ed; Note: Changed from R51 to R51.9 ( 3 10:58 AM) , Date Diagnosed : 04/20/2023 2:56 PM (R51) Not Available [facility] 4 02:52:14 Migraine without aura 75503091 Active 2023 IRIS GILMORE MD [address], [place], [address] , [facility] - [facility] 4 17:03:18 Clearing throat - hawking 673667269 Active 2024 OLIVER CHEEMA PA-C [address], [place], [address] , [place] - [facility] 5 12:17:30 Problem Notes None recorded. Medical Equipment None Reported. Allergies Allergen ID Allergen Name Allergen Category Reaction Reaction Severity Criticality Documentation Date Start Date Code Code System Note Provider Name and Address Organization Details Recorded Time 496054 codeine medicatio n Not available Not available Not available 06/07/2025 2670 RxNorm Not Available [facility] - prod 15:53:10 173820 omeprazol e medicatio n Not available Not available Not available 06/07/2025 7646 RxNorm Not Available [employer] [facility] - prod 15:53:10 Medications Name Sig Start Date Stop Date Status Note LastModified by Organization Details LastModified Time alprazolam 0.25 mg tablet 12/08 completed Not Available Not Available Not Available famotidine 20 mg tablet Take 1 tablet twice a day by oral route for 30 days. 2024 active Not Available Not Available Not Avai lable magnesium oxide 400 mg (241.3 mg magnesium) tablet 12/08 completed Not Available Not Available Not Available ipratropium bromide 21 mcg (0.03 %) nasal spray Dairy 2 sprays twice a day by intranasa l route. 2024 active Not Available Not Available Not Avai lable mometasone 0.1 % topical cream active Not Available Not Available Not Available riboflavin (vitamin B2) 400 mg tablet 12/08 completed Not Available Not Available Not Available Vitals Date Recorded Body height Body mass index (BMI) Body weight Provider Name and Address Organization Details Last Updated DateTime 12/08/2024 170.18 cm 32.4 kg/m2 04562.62 g Azra Mata [place] - [facility] 12/08/2024 09:41:16 Date Recorded Body height Body mass index (BMI) Body weight Provider Name and Address Organization Details Last Updated DateTime 04/12/2024 170.18 cm 33.7 kg/m2 52174.36 g Lilliam Finley [place] - [facility] 04/12/2024 13:32:08 Date Recorded Body height Body mass index (BMI) Body weight Provider Name and Address Organization Details Last Updated DateTime 06/11/2025 170.18 cm 32.4 kg/m2 62679.62 g Lilliam Tushar [facility] 06/11/2025 11:30:39 Social History None recorded. Functional Status None recorded. Mental Status None recorded. Family History Nothing Reported. Medical History No medical history recorded. Gynecological HistoryNo gynecological history recorded. Obstetrics History GPAL:G 0 P 0 0 0 0 Past Encounters Encounter ID Performer Location Encounter Start Date Encounter Closed Date Diagnosis/Indication Diagnosis SNOMED-CT Code Diagnosis ICD10 Code Diagnosis IMO Codes Diagnosis Note [id number] OLIVER CHEEMA PA-C [facility] [address] [address] 04/12/2024 13:07:14 04/12/2024 13:51:16 Allergic rhinitis caused by pollen 41730794 J30.1 Headache 60772022 R51.9 Migraine without aura 56 259845 G43.009 [id number] OLIVER CHEEMA PA-C [facility] [address] [address] 12/08/2024 09:29:04 12/08/2024 09:54:59 Allergic rhinitis caused by pollen 70686757 J30.1 Migraine without aura 56 938893 G43.009 [id number] OLIVER CHEEMA PA-C [facility] [address] [address] 06/11/2025 11:14:17 06/11/2025 11:43:37 Allergic rhinitis caused by pollen 57895480 J30.1 Clearing franchesca schilling 054413727 R09.89 911087 Health Concerns Section Related Observation LastModified by Organization Detai ls LastModified Time None Recorded Concern Status LastModified by Organization Details LastModified Time None Recorded Advance Directives Directive None Recorded Payers Insurance Date Sequence Insurance Name Policy Number Policy Turner Covered Member ID Turner Member ID Guarantor Name 06/08/2025 1 [facility] (O) [id number] Ninfa Pronovost [id number] Ninfa T Pronovost Notes Date Note Type Note Provider Name and Address Organization Details Recorded Time 04/12/2024 text/html ROS as noted in the [facility] 64-year-old female presents for reevaluation of seasonal [...] helping relieve her headaches. IRIS GILMORE MD [address] [place] [address], [address], [facility] - [facility] 04/12/2024 17:03:33 12/08/2024 text/html ROS as noted in the [facility] 64-year-old female presents for 6-month allergy review. She is currently on maintenance. Overall doing much better with her seasonal allergies. Not taking any allergy medication. IRIS GILMORE MD [address] [place] [address], [address], [facility] - [facility] 12/08/2024 12:44:29 06/11/2025 text/html ROS as noted in the [facility] 65-year-old female presents for reevaluation of allergies. She has been on immunotherapy for quite some time now and has been on maintenance dose for over a year. Hesitant to discontinue as she continues to have seasonal allergy symptoms. Her mouth is bothersome symptom is throat clearing. This has not gotten any better with treatment. She does have heartburn for which she does not take any medication as she does not tolerate Prilosec. Has tried nasal sprays without any benefit. Eduard Mccray, DO [address] [facility],[place] [address], [place], [address], [facility] - [facility] 06/12/2025 13:55:46 OBGyn Episode No OBEpisode recorded.
--- OUTSIDE RECORDS SUMMARY | 2025-06-19 09:22 | XMS_ITS | Continuity of Care Document ---
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 [...] tolerate Prilosec. Will revisit in 6 months. [email or web address] Not available 06/11/2025 12:17:19 Plan of Treatment Reminders Order Date Submit Date Provider Last Modified By Organization Details Last Modified Time Details Appointments Establish ed 15 2025 09:00A Roberth CHEEMA PA-C Not available Not available Not available Lab None recorded. Referral None recorded. Procedures None recorded. Surgeries None recorded. Imaging None recorded. Medication Orders famotidin e 20 mg tablet 2024 025 [id number], [address] [facility], [place], [address], 06/11/2025 12:23:43 ipratropi um bromide 21 mcg (0.03 %) nasal spray 2024 025 [facility], [address] [place], [address], 06/11/2025 12:23:44 Patient TargetsNo targets recorded. Patient InstructionsNo instructions recorded. Reason for Referral None Reported. Problems Name Problem SNOMED Code Status Onset Date Resolution Date Notes Provider Name and Address Organization Details Recorded Time Impacted cerumen in right ear 00515267008 72050 Active 2022 Impacted cerumen, right ear; Note: Date Diagnosed : 04/20/2023 2:44 PM (H61.21) Not Available [facility] 4 02:52:17 Allergic rhinitis caused by pollen 58442824 Active 2022 Allergic rhinitis due to pollen; Note: Date Diagnosed : 04/20/2023 2:56 PM (J30.1) Not Available [facility] 4 02:52:15 Headache 54914095 Active 2022 Headache, unspecifi ed; Note: Changed from R51 to R51.9 ( 3 10:58 AM) , Date Diagnosed : 04/20/2023 2:56 PM (R51) Not Available [facility] 4 02:52:14 Migraine without aura 77245442 Active 2023 IRIS GILMORE MD [address] [place] [address], [place], [address] , [facility] - [facility] 4 17:03:18 Clearing throat - hawking 243020530 Active 2024 OLIVER CHEEMA PA-C [address] [place] [address], [place], [address] , [facility] - [facility] 5 12:17:30 Problem Notes None recorded. Medical Equipment None Reported. Allergies Allergen ID Allergen Name Allergen Category Reaction Reaction Severity Criticality Documentation Date Start Date Code Code System Note Provider Name and Address Organization Details Recorded Time 078136 codeine medicatio n Not available Not available Not available 06/07/2025 2670 RxNorm Not Available [place] - [employer] [facility] - prod 5 15:53:10 122455 omeprazol e medicatio n Not available Not available Not available 06/07/2025 7646 RxNorm Not Available [facility] - [facility] - prod 15:53:10 Medications Name [...] bromide 21 mcg (0.03 %) nasal spray Ramer 2 sprays twice a day by intranasa [...] Updated DateTime 06/11/2025 170.18 cm 32.4 kg/m2 16827.62 g Lilliam Finley [place] - [facility] 06/11/2025 11:30:39 Social History None recorded. Functional Status None recorded. Mental Status None recorded. Family History Nothing Reported. Medical History No medical history recorded. Gynecological HistoryNo gynecological history recorded. Obstetrics History GPAL:G 0 P 0 0 0 0 Past Encounters Encounter ID Performer Location Encounter Start Date Encounter Closed Date Diagnosis/Indication Diagnosis SNOMED-CT Code Diagnosis ICD10 Code Diagnosis IMO Codes Diagnosis Note [id number] OLIVER CHEEMA PA-C [facility] [address] [place] [address] 06/11/2025 11:14:17 06/11/2025 11:43:37 Allergic rhinitis caused by pollen 00568000 J30.1 Clearing t hroat - hawking 146318802 R09.89 258226 Health Concerns Section Related Observation LastModified by Organization Detai ls LastModified Time None Recorded Concern Status LastModified by Organization Details LastModified Time None Recorded Payers Encounter Date Sequence Insurance Name Policy Number Policy Turner Covered Member ID Turner Member ID Guarantor Name 06/11/[address] [facility] (O) [id number] Ninfa Land [id number] Ninfa Land Notes Date Note Type Note Provider Name and Address Organization Details Recorded Time 06/11/2025 text/html ROS as noted in the HPI 65-year-old female presents for reevaluation of allergies. [...] without any benefit. Eduard Mccray, DO [address] [facility],[address], [address], [facility] - [facility] 06/12/2025 13:55:46 OBGyn Episode No OBEpisode recorded.
== END ==
LOC: HO.CARD 08:59
PROVIDERS: PCP Internal Medicine; Visit Provider Internal Medicine
DX: I25.10 Atherosclerotic heart disease of native coronary artery without angina pectoris (principal); R07.89 Other chest pain
CPT/HCPCS: 93306

== ENCOUNTER → 2025-06-19 09:02 | Outpatient (BNV) | payer OTHER, SELFPAY | PROVIDERS: PCP Internal Medicine; Visit Provider Internal Medicine | DX: I25.10 Atherosclerotic heart disease of native coronary artery without angina pectoris (principal) | CPT/HCPCS: 93306 ==

== ENCOUNTER → 2025-06-21 23:59 | Outpatient (BNV) | payer OTHER, SELFPAY | PROVIDERS: PCP Internal Medicine; Visit Provider Internal Medicine Cardiovascular Disease | DX: I25.118 Atherosclerotic heart disease of native coronary artery with other forms of angina pectoris (principal) | CPT/HCPCS: 93458; 99152 ==

== ENCOUNTER 2025-07-06 13:33 | Outpatient (AMB) | payer OTHER, SELFPAY ==
[2025-07-06 13:37] VITALS: BP 130/70; PULSE 77
--- NOTE | 2025-07-06 13:37 | A.OFFVIS_ITS ---
Vital Signs 07/06/25 13:37 Height 5 ft 6 in BMI Reason not done Patient refused/unable BP 130/70 Blood Pressure Location Lt brachial Position Sitting Pulse 77 Pulse Source Pulse Oximeter Intake Visit Reasons: s/p cath Allergies omeprazole (From Prilosec) Allergy (Mild, Verified 04/20/25 09:25) Swelling codeine Adverse Reaction (Verified 04/20/25 09:25) unknown Medication List - Last Reconciled 07/06/25 by Jaqui Gomes NP-C acetaminophen (Tylenol Extra Strength) 1,000 mg PO Q6H PRN amlodipine 2.5 mg PO DAILY atorvastatin (Lipitor) 40 mg PO QPM ibuprofen 400 - 600 mg PO Q4-6H PRN nitroglycerin 0.4 mg sublingual Q5M PRN HPI HPI s/p cath: Details: The patient is a 65 year old female presenting for follow-up after a recent cardiac catheterization for chest discomfort. She reports chest pain that began last year, occurring with exertion such as walking. The pain would resolve after slowing down for a few minutes but happened every time she walked, causing her to stop the activity. Her cardiac workup was initiated due to these symptoms. A nuclear stress test revealed lateral wall ischemia, but a subsequent cardiac catheterization on 06/21/2025 showed normal coronary arteries, indicating the stress test was a false positive. An echocardiogram on 06/19/2025 was also normal, with an ejection fraction of 62% and no wall motion or valvular abnormalities. The patient reports feeling more pressure than pain during the pharmacological stress test. Her medications included aspirin, atorvastatin, and metoprolol, but she has not been taking metoprolol regularly due to concerns about drowsiness an d dizziness. She confirms taking atorvastatin for slightly elevated cholesterol. The patient notes a family history of heart problems. [facility]LY [facility] Medical History Abnormal stress test Acid reflux Colon cancer screening Chest discomfort Right shoulder pain Hyperlipidemia Family history of thyroid disorder Menopause Impaired fasting glucose Hot flashes due to surgical menopause Uterine fibroid Environmental allergies Irritable bowel syndrome with mixed bowel habits Surgical History Hx of wisdom tooth extraction Hx of colonoscopy History of partial hysterectomy Family History Father Hypertension Skin cancer Alzheimer's dementia, late onset Mother Diabetes mellitus Thyroid disorder Sister Skin cancer Maternal Aunt Breast cancer, Onset Age: 61 Maternal Grandmother Myocardial infarction Maternal Uncle Myocardial infarction, Onset Age: 45 Social History Housing: House Alcohol intake: current Alcohol intake frequency: holidays/special occasions only Patient Tobacco Use Status: Never used Tobacco e-Cigarette/Vaping Use: Never Used service: No Current occupational status: retired Cognitive needs: No Hearing needs: No Vision needs: Yes Review of Systems Const All systems reviewed & are unremarkable except as noted in HPI and below Denies weakness ENT Denies dizziness Card Reports chest pain, Reports chest pain with activity, Denies syncope, Denies rapid heart rate, Denies pedal edema, Denies edema, Denies leg edema, Denies lightheadedness, Denies palpitations, Denies dyspnea, Denies dyspnea on exertion and Denies orthopnea Resp Denies cough, Denies dyspnea and Denies dyspnea on exertion GI Denies hematochezia and Denies change in stool character Musc Denies abnormal gait, Denies muscle cramps, Denies muscle weakness, Denies n umbness, Denies radiating pain into limb and Denies tingling Neuro Denies abnormal gait, Denies dizziness, Denies syncope, Denies numbness, Denies tingling and Denies weakness Endo Denies palpitations Physical Exam Vital Signs: Last Vital Signs Pulse 77 07/06/25 13:37 BP 130/70 07/06/25 13:37 Const General: cooperative, healthy appearing, comfortable and no acute distress Orientation/consciousness: patient oriented x3 Neck Neck: Yes normal visual inspection Resp Effort & Inspection: normal respiratory effort Auscultation: clear to auscultation bilaterally, no rales, no rhonchi and no wheezes Cardio Rate: regular rate Rhythm: regular rhythm Heart sounds: S1 normal heart sound present, S2 normal heart sound present, no gallops, no murmurs and no rubs Neuro General: patient oriented x3 Extrem General: Yes normal to inspection, No no pedal edema and No calf tenderness Psych Appearance: grossly normal Mental Status: mental status grossly normal Speech and movement: Normal speech and movement present Assessment & Plan Assessment & Plan (1) Chest discomfort: Code(s): R07.89 - Other chest pain Category: Medical Plan: Reports of exertional chest discomfort concerning for angina. She did have exercise stress test 01/30/2025 with exercise 5 minutes with 5/10 chest pressure, blood pressure max 180/60, no EKG changes of ischemia, symptoms resolved quickly in recovery. Pharmacological nuclear stress test done 05/22/2025 showed blood pressure max 196/50, no EKG changes of ischemia, lateral wall ischemia. She had cardiac catheterization on 06/21/2025 showing normal coronary arteries, normal systemic pressures. Echocardiogram 06/19/2025 showed EF 62% no valve or regional wall motion abnormalities. All the above reviewed with her. Informed she does not have obstructive coronary artery disease and is not experiencing angina. We discussed the possibilities of alternate reasons for her chest discomfort including exercise induced hypertension and musculoskeletal issues. Will trial amlodipine 2.5 mg daily for better blood pressure control and to see if this helps her symptom. Will have her stop metoprolol and daily aspirin. Periodic home blood pressure checks recommended. Cardiology follow-up 2 months, sooner if needed. (2) Abnormal stress test: Code(s): R94.39 - Abnormal result of other cardiovascular function study Category: Medical Plan: Nuclear imaging false positive. (3) S/P cardiac cath: Comment: 06/21/25 normal coronary arteries Code(s): Z98.890 - Other specified postprocedural states Category: Surgical Plan: Right radial catheterization site well healed (4) Elevated BP reading w/ no diagnosis of HTN: Code(s): R03.0 - Elevated blood-pressure reading, without diagnosis of hypertension Category: Medical Plan: As above Plan I informed the patient that her recent cardiac catheterization showed normal coronary arteries, which is very reassuring and effectively rules out atherosclerotic blockages as the cause of her chest pain. I explained that the prior abnormal nuclear stress test was a false positive result. We discussed that her exertional symptoms are likely due to either a significant rise in blood pressure with activity or a musculoskeletal issue. I recommended discontinuing aspirin and metoprolol as they are not medically necessary in her case. We agreed she should continue atorvastatin for her cholesterol. I prescribed a trial of low-dose amlodipine 2.5 mg to manage her exertional hypertension and advised her to resume physical activity to see if this helps her symptoms. I instructed her on potential side effects of the new medication, such as lightheadedness or dizziness, and advised her to contact me via the patient portal if these occur. I recommended a follow-up visit in two months to re-evaluate. Medications: New amlodipine 2.5 mg PO DAILY 30 tabs 2RF Discontinued metoprolol succinate ER (Toprol XL) Discontinued Reason: Doctor's Order 25 mg PO DAILY 90 tabs 3RF Patient Instructions: - You can stop taking aspirin and metoprolol, as they are no longer needed for your heart. - Continue taking your atorvastatin for cholesterol. - Start taking amlodipine 2.5 mg once a day. This is a blood pressure medication to help control your blood pressure when you exercise. - Please resume your physical activities, like walking, to see if the new medication helps your chest discomfort. - Check your blood pressure at home sometimes when you are resting. - If you feel dizzy or lightheaded after starting amlodipine, it might mean your blood pressure is too low. If this happens, stop the medication and let me know through the patient portal. - If you get the chest discomfort again, check if the area is sore when you press on it. This will help us know if it might be a muscle or rib issue. - I will see you for a follow-up visit in about two months. You can send me a message on the patient portal if you have any problems or questions before then. Patient was informed and verbally consented to the use of an ambient scribe for clinic note documentation during this visit. Visit time spent on chart review, interview, assessment, orders, documentation. Coding Level of Care Code Est Pt Level 4 (43229) Add On Problem Visit Only Diagnoses Chest discomfort R07.89 Abnormal stress test R94.39 S/P cardiac cath Z98.890 Elevated BP reading w/ no diagnosis of HTN R03.0 Time Spent (min) 30
--- OUTSIDE RECORDS SUMMARY | 2025-07-06 15:15 | XMS_ITS | Data Portability ---
Author Organization [place] - [facility], Allergy Address [address] [address] Care Team Providers Care Rn Document Improvement Specialist Name Role Phone MARY BOUCHER Primary Care [...] Follow-up at that time. Continue current regimen. Not available 12/08/2024 10:04:26 06/11/2025 06/11/2025 65-year-old [...] tolerate Prilosec. Will revisit in 6 months. [email or web address] Not available 06/11/2025 12:17:19 Plan of Treatment Reminders Order Date Submit Date Provider Last Modified By Organization Details Last Modified Time Details Appointments Establish ed 15 2025 09:00A M OLIVER CHEEMA PA-C Not available Not available Not available Lab None recorded. Referral None recorded. Procedures None recorded. Surgeries None recorded. Imaging None recorded. Medication Orders famotidin e 20 mg tablet 2024 025 [id number] [address] [place], [address], 06/11/2025 12:23:43 ipratropi um bromide 21 mcg (0.03 %) nasal spray 2024 025 [id number] [address] [place], [address], 06/11/2025 12:23:44 ipratropi um bromide 21 mcg (0.03 %) nasal spray 2023 024 [id number] [address] [place], [address], 04/12/2024 14:04:23 Patient TargetsNo targets recorded. Patient InstructionsNo instructions recorded. Reason for Referral None Reported. Problems Name Problem SNOMED Code Status Onset Date Resolution Date Notes Provider Name and Address Organization Details Recorded Time Impacted cerumen in right ear 86092736469 49585 Active 2022 Impacted cerumen, right ear; Note: Date Diagnosed : 04/20/2023 2:44 PM (H61.21) Not Available [facility], [facility] 4 02:52:17 Allergic rhinitis caused by pollen 82141831 Active 2022 Allergic rhinitis due to pollen; Note: Date Diagnosed : 04/20/2023 2:56 PM (J30.1) Not Available [facility], [facility] 4 02:52:15 Headache 82585502 Active 2022 Headache, unspecifi ed; Note: Changed from R51 to R51.9 ( 3 10:58 AM) , Date Diagnosed : 04/20/2023 2:56 PM (R51) Not Available [facility], [facility] 4 02:52:14 Migraine without aura 66327153 Active 2023 IRIS GILMORE MD [address], [place], [address] , [facility] - [facility] 4 17:03:18 Clearing throat - hawking 105108017 Active 2024 OLIVER CHEEMA PA-C [address], [place], [address] , [place] - [facility] 5 12:17:30 Problem Notes None recorded. Medical Equipment None Reported. Allergies Allergen ID Allergen Name Allergen Category Reaction Reaction Severity Criticality Documentation Date Start Date Code Code System Note Provider Name and Address Organization Details Recorded Time 383872 codeine medicatio n Not available Not available Not available 06/07/2025 2670 RxNorm Not Available [employer] - prod 15:53:10 177130 omeprazol e medicatio n Not available Not available Not available 06/07/2025 7646 RxNorm Not Available [employer] - prod 15:53:10 Medications Name [...] bromide 21 mcg (0.03 %) nasal spray [place] 2 sprays twice a day by intranasa [...] Updated DateTime 12/08/2024 170.18 cm 32.4 kg/m2 51150.62 g Azra Mata [place] - [facility] 12/08/2024 09:41:16 Date Recorded Body height Body mass index (BMI) Body weight Provider Name and Address Organization Details Last Updated DateTime 04/12/2024 170.18 cm 33.7 kg/m2 05607.36 g Lilliam Finley [place] - [facility] 04/12/2024 13:32:08 Date Recorded Body height Body mass index (BMI) Body weight Provider Name and Address Organization Details Last Updated DateTime 06/11/2025 170.18 cm 32.4 kg/m2 56662.62 g Lilliam Tushar [facility] 06/11/2025 11:30:39 Social History None recorded. Functional Status None recorded. Mental Status None recorded. Family History Nothing Reported. Medical History No medical history recorded. Gynecological HistoryNo gynecological history recorded. Obstetrics History GPAL:G 0 P 0 0 0 0 Past Encounters Encounter ID Performer Location Encounter Start Date Encounter Closed Date Diagnosis/Indication Diagnosis SNOMED-CT Code Diagnosis ICD10 Code Diagnosis IMO Codes Diagnosis Note [id number] OLIVER CHEEMA PA-C [facility] [address] [address] 04/12/2024 13:07:14 04/12/2024 13:51:16 Allergic rhinitis caused by pollen 06567387 J30.1 Headache 55229408 R51.9 Migraine without aura 56 483303 G43.009 [id number] OLIVER CHEEMA PA-C [facility] [address] [address] 12/08/2024 09:29:04 12/08/2024 09:54:59 Allergic rhinitis caused by pollen 46212689 J30.1 Migraine without aura 56 496682 G43.009 [id number] OLIVER CHEEMA PA-C [facility] [address] [address] 06/11/2025 11:14:17 06/11/2025 11:43:37 Allergic rhinitis caused by pollen 32386268 J30.1 Clearing waleska schilling 678433326 R09.89 480946 Health Concerns Section Related Observation LastModified by Organization Detai ls LastModified Time None Recorded Concern Status LastModified by Organization Details LastModified Time None Recorded Advance Directives Directive None Recorded Payers Insurance Date Sequence Insurance Name Policy Number Policy Turner Covered Member ID Turner Member ID Guarantor Name 06/08/2025 1 [facility] (O) [id number] Ninaf Pronovost [id number] Ninfa T Pronovost Notes Date Note Type Note Provider Name and Address Organization Details Recorded Time 04/12/2024 text/html ROS as noted in the [facility] 64-year-old female presents for reevaluation of [...] helping relieve her headaches. IRIS GILMORE MD [address] [place] [address], [phone], [facility] - [facility] 04/12/2024 17:03:33 12/08/2024 text/html ROS as noted in the [facility] 64-year-old female presents for 6-month allergy review. She is currently on maintenance. Overall doing much better with her seasonal allergies. Not taking any allergy medication. IRIS GILMORE MD [address] [place] [address], [phone], [facility] - [facility] 12/08/2024 12:44:29 06/11/2025 text/html ROS as noted in the [facility] 65-year-old female presents for reevaluation of [...] without any benefit. Eduard Mccray, DO [address] [facility],[address] [place] [address], [place], [address], [facility] - [facility] 06/12/2025 13:55:46 OBGyn Episode No OBEpisode recorded.
--- OUTSIDE RECORDS SUMMARY | 2025-07-06 15:15 | XMS_ITS | Continuity of Care Document ---
Author Organization [place] - [facility], [facility] Address [address] [place] [address] Care Team Providers Care Manager Dish Name Role Phone MARY BOUCHER Primary Care [...] tolerate Prilosec. Will revisit in 6 months. [email or web address] Not available 06/11/2025 12:17:19 Plan of Treatment Reminders Order Date Submit Date Provider Last Modified By Organization Details Last Modified Time Details Appointments Establish ed 15 2025 09:00A Roberth CHEEMA PA-C Not available Not available Not available Lab None recorded. Referral None recorded. Procedures None recorded. Surgeries None recorded. Imaging None recorded. Medication Orders famotidin e 20 mg tablet 2024 025 [id number], [address] [facility], [place], [address], 06/11/2025 12:23:43 ipratropi um bromide 21 mcg (0.03 %) nasal spray 2024 025 [id number], [address] [place], [address], 06/11/2025 12:23:44 Patient TargetsNo targets recorded. Patient InstructionsNo instructions recorded. Reason for Referral None Reported. Problems Name Problem SNOMED Code Status Onset Date Resolution Date Notes Provider Name and Address Organization Details Recorded Time Impacted cerumen in right ear 37945126533 55710 Active 2022 Impacted cerumen, right ear; Note: Date Diagnosed : 04/20/2023 2:44 PM (H61.21) Not Available [facility] 4 02:52:17 Allergic rhinitis caused by pollen 17394656 Active 2022 Allergic rhinitis due to pollen; Note: Date Diagnosed : 04/20/2023 2:56 PM (J30.1) Not Available [facility] 4 02:52:15 Headache 47567534 Active 2022 Headache, unspecifi ed; Note: Changed from R51 to R51.9 ( 3 10:58 AM) , Date Diagnosed : 04/20/2023 2:56 PM (R51) Not Available [facility] 4 02:52:14 Migraine without aura 23154237 Active 2023 IRIS GILMORE MD [address] [place] [address], [place], [address] , [facility] - [facility] 4 17:03:18 Clearing throat - hawking 088172194 Active 2024 OLIVER CHEEMA PA-C [address] [place] [address], [place], [address] , [facility] - [facility] [place] 5 12:17:30 Problem Notes None recorded. Medical Equipment None Reported. Allergies Allergen ID Allergen Name Allergen Category Reaction Reaction Severity Criticality Documentation Date Start Date Code Code System Note Provider Name and Address Organization Details Recorded Time 566782 codeine medicatio n Not available Not available Not available 06/07/2025 2670 RxNorm Not Available [facility] [employer] - prod 5 15:53:10 767085 omeprazol e medicatio n Not available Not [...] bromide 21 mcg (0.03 %) nasal spray [place] 2 sprays twice a day by intranasa [...] Updated DateTime 06/11/2025 170.18 cm 32.4 kg/m2 51716.62 g Lilliam Finley [place] - [facility] 06/11/2025 11:30:39 Social History None recorded. Functional Status None recorded. Mental Status None recorded. Family History Nothing Reported. Medical History No medical history recorded. Gynecological HistoryNo gynecological history recorded. Obstetrics History GPAL:G 0 P 0 0 0 0 Past Encounters Encounter ID Performer Location Encounter Start Date Encounter Closed Date Diagnosis/Indication Diagnosis SNOMED-CT Code Diagnosis ICD10 Code Diagnosis IMO Codes Diagnosis Note [id number] OLIVER CHEEMA PA-C [facility] [address] [place] [address] 06/11/2025 11:14:17 06/11/2025 11:43:37 Allergic rhinitis caused by pollen 30632774 J30.1 Clearing t hroat - hawking 809541317 R09.89 550122 Health Concerns Section Related Observation LastModified by Organization Detai ls LastModified Time None Recorded Concern Status LastModified by Organization Details LastModified Time None Recorded Payers Encounter Date Sequence Insurance Name Policy Number Policy Turner Covered Member ID Turner Member ID Guarantor Name 06/11/2025 1 [facility] (O) [id number] Ninfa Land [id number] Ninfa Land Notes Date Note Type Note [...] without any benefit. Eduard Mccray, DO [address] [facility],[address], [address], [facility] - [facility] 06/12/2025 13:55:46 OBGyn Episode No OBEpisode recorded.
== END 2025-07-06 14:09 | disposition home or self-care (01) ==
LOC: HO.HCS 13:34
PROVIDERS: PCP Internal Medicine; Visit Provider Nurse Practitioner Family
DX: R07.89 Other chest pain (principal); R94.39 Abnormal result of other cardiovascular function study; Z98.890 Other specified postprocedural states; R03.0 Elevated blood-pressure reading, without diagnosis of hypertension
CPT/HCPCS: 99214

== ENCOUNTER → 2025-07-06 13:33 | Outpatient (BNVA) | payer OTHER, SELFPAY | PROVIDERS: PCP Internal Medicine; Visit Provider Nurse Practitioner Family | DX: Z48.812 Encounter for surgical aftercare following surgery on the circulatory system (principal); R07.89 Other chest pain; R94.39 Abnormal result of other cardiovascular function study; R03.0 Elevated blood-pressure reading, without diagnosis of hypertension; Z98.890 Other specified postprocedural states; Z79.899 Other long term (current) drug therapy | CPT/HCPCS: 99212 ==